=== PATIENT | male | born 1970 | race Caucasian/White ===

== ENCOUNTER 2020-11-01 15:12 | Outpatient (REF) | payer BC, SELFPAY ==
[2020-11-01 15:46] LABS: MANUAL DIFF FLAG NO
[2020-11-01 15:51] LABS: Basophils Absolute Auto 0.1 X10*3/uL (0.0-0.2); Basophils Percent Auto 0.9 % (0-2); Eosinophils Absolute Auto 0.6 X10*3/uL (0.0-0.4); Eosinophils Percent Auto 6.1 % (0-4); Hematocrit 47.6 % (42-52); Hemoglobin 15.6 g/dl (14.0-18.0); Imm Gran Abs Auto 0.03 X10*3/uL (0.00-0.03); Imm Gran Pct Auto 0.3 % (0.0-0.4); Lymphocytes Absolute Auto 3.6 X10*3/uL (1.2-4.9); Mean Corpuscular HGB Conc 32.8 g/dl (31.0-36.0); Mean Corpuscular Hemoglobin 29.3 pg (27.0-33.0); Mean Corpuscular Volume 89.3 fL (80-98); Mean Platelet Volume 10.3 fL (9.4-12.4); Monocytes Absolute Auto 0.9 X10*3/uL (0.1-1.2); Monocytes Percent Auto 9.2 % (2-11); Neutrophils Absolute Auto 4.1 X10*3/uL (2.0-8.3); Neutrophils Percent Auto 44.5 % (45-73); Platelet Count 312 X10*3/uL (160-400); Red Blood Count 5.33 X10*6/uL (4.60-5.80); Red Cell Distribution Width 14.6 % (11.0-16.0); White Blood Count 9.3 X10*3/uL (4.8-10.8)
[2020-11-01 16:17] LABS: Alanine Aminotransferase 22 U/L (0-40); Albumin Level 4.7 g/dL (3.5-5.0); Alkaline Phosphatase 72 U/L (39-117); Anion Gap 16 (12-20); Aspartate Amino Transferase 21 U/L (5-37); Bilirubin Total 0.7 mg/dL (0.0-1.0); Blood Urea Nitrogen 14 mg/dL (9-16); Calcium 10.3 mg/dL (8.4-10.2); Carbon Dioxide 28 mmol/L (22-29); Chloride 103 mmol/L (96-108); Cholesterol 229 mg/dL; Estimated Glomerular Filt Rate > 60; Glucose Random 91 mg/dL (60-115); HDL Cholesterol 48 mg/dL; LDL Cholesterol Calculated 156 mg/dl; Potassium 4.7 mmol/L (3.3-5.1); Sodium 142 mmol/L (135-145); Total Protein 7.2 g/dL (6.5-8.0); Triglycerides 125 mg/dL
[2020-11-01 16:37] LABS: Prostate Specific Antigen 0.35 ng/mL (<0.05-4.0)
== END 2020-11-01 15:13 | disposition home or self-care (01) ==
LOC: HO.LAB 15:12
PROVIDERS: PCP Internal Medicine Medical Oncology; Visit Provider Internal Medicine Medical Oncology
DX: Z00.00 Encounter for general adult medical examination without abnormal findings (principal); E66.9 Obesity, unspecified
CPT/HCPCS: 36415; 80053; 80061; 84153; 85025

== ENCOUNTER 2021-01-10 11:05 | Day surgery (SDC) | payer BC, SELFPAY ==
[2021-01-04 09:34] VITALS: BMI 32.1
--- NOTE | 2021-01-07 11:06 | P.CONAN_ITS ---
Documented by User: Leena Pedersen 01/07/21 11:06 HPI - Anesthesia Eval Consult details Narrative: 50yo M for Upper Endoscopy and Colonoscopy [facility] Past Medical History Medical History Back pain GERD (gastroesophageal reflux disease) Surgical History Surgical History History of back surgery Social History Social History Patient Tobacco Use Status: Current everyday Tobacco user Tobacco use type: Cigarette Cigarettes Per Day: 25 Smoked in Last 30 Days: Yes Advance Directives: No Advance Directives Information Provided: Yes Meds Allergies Allergy/AdvReac Type Severity Reaction Status Date / Time No Known Allergies Allergy Verified 01/04/21 09:30 Home Medications Medication Instructions Recorded Confirmed Last Taken Type ibuprofen 01/04/21 01/04/21 Unknown History omeprazole 1 cap PO DAILY 01/04/21 01/04/21 Unknown History Exam Exam Date and Time: January 07, 2021 110 Height,Weight and Vital Signs: Height 5 ft 9 in Weight 98.883 kg Pertinent Lab Results Pertinent Lab Results: Laboratory Tests 11/01/20 11/01/20 15:28 15:28 WBC 9.3 Hgb 15.6 Hct 47.6 Plt Count 312 Sodium 142 Potassium 4.7 Chloride 103 Carbon Dioxide 28 BUN 14 Creatinine 0.99 Assessment and Plan Assessment Anesthesia Assessment: Chart Reviewed Documented by User: Boaz Oliveira 01/10/21 12:49 [facility] Past Medical History Medical History Back pain GERD (gastroesophageal reflux disease) Surgical History Surgical History History of back surgery Social History Social History Patient Tobacco Use Status: Current everyday Tobacco user Tobacco use type: Cigarette Cigarettes Per Day: 25 Smoked in Last 30 Days: Yes Advance Directives: No Advance Directives Information Provided: Yes Meds Allergies Allergy/AdvReac Type Severity Reaction Status Date / Time No Known Allergies Allergy Verified 01/04/21 09:30 Home Medications Medication Instructions Recorded Confirmed Last Taken Type ibuprofen 01/04/21 01/04/21 Unknown History omeprazole 1 cap PO DAILY 01/04/21 01/04/21 Unknown History Exam Airway Mallampati Class: II TM Dist: >3cm Neck ROM: Full Loose/Missing/Broken Teeth: No Heart: [id number] Lungs: cta b/l Assessment and Plan Assessment Anesthesia Assessment: Anesthesia Plan Discussed, PAT Visit and Chart Reviewed Final Anesthetic Review NPO: Yes ASA Class: II Final Preanesthetic Review: No Changes in Pt Med Stat, Meds/Allgs Chart Reviewed, Consent Obtained/Reviewed and Anes Risks/Benef Reviewed Patient Risk: Low Procedure Risk: Low Assessment/Block/Sedation in SS: Assess/Block/Sedation-SS Anesthetic Plan Anesthetic Plan: MAC: and Agree w/ Assess. and Plan Disposition: Standard PACU
[2021-01-10 11:32] VITALS: BP 129/89; PULSE 82; RESP 16; TEMP 36.8; O2SAT 96
[2021-01-10] MEDS: Lactated Ringers 1,000 ML 100 ML IVCONT (11:43)
--- NOTE | 2021-01-10 14:38 | PM.OP ---
Brief Operative Note Date of Service: 01/10/21 Pre-op diagnosis: GERD, Screening Post-op diagnosis: other (Hiatal hernia, Colon polyps) Procedure: EGD with biopsy, Colonoscopy to the cecum and TI with bx/removal of polyps Surgeon: Derrick Dye Anesthesia: MAC Was an Application Developer used for this Procedure?: No Estimated blood loss (mL): 4.0 Pathology: other (A. EG Junction at 38cm B. Cecal polyp C. Polyp at 20cm) Condition: stable Disposition: PACU
[2021-01-10 14:40] VITALS: BP 101/68; PULSE 67; RESP 14; TEMP 36.2; O2SAT 96
[2021-01-10 14:55] VITALS: BP 106/73; PULSE 69; RESP 16; TEMP 36.2; O2SAT 99
--- NOTE | 2021-01-10 15:09 | OP_ITS ---
SURGEON: Derrick Dye MD INDICATIONS: The patient presents for evaluation of gastroesophageal reflux, colorectal cancer screening. Full consent has been obtained from him for this, including risks of bleeding and perforation. PREOPERATIVE DIAGNOSIS: POSTOPERATIVE DIAGNOSIS: PROCEDURE PERFORMED: Esophagogastroduodenoscopy with biopsies, and colonoscopy to the cecum and terminal ileum with biopsy and removal of polyps. ESTIMATED BLOOD LOSS: COMPLICATIONS: ANESTHESIA: Monitored anesthesia care. ASSISTANTS: SPECIMENS: PREOPERATIVE DIAGNOSES: Gastroesophageal reflux and colorectal cancer screening. POSTOPERATIVE DIAGNOSES: Gastroesophageal reflux and colorectal cancer screening, hiatal hernia, colon polyps, diverticulosis, and internal hemorrhoids. DESCRIPTION OF PROCEDURE: The patient was placed in the left lateral decubitus position. The Olympus video gastroscope was passed in the posterior oropharynx and upper esophagus under direct vision. The scope was passed slowly into the distal esophagus. The gastroesophageal junction appeared at 38 cm. There was some very slight irregularity consistent with reflux, but no evidence of esophagitis nor definitive evidence of Blackwell's mucosa. There was a small to moderate-sized hiatal hernia. The scope was advanced to the pylorus and duodenum was cannulated to the descending portion. The duodenum including the bulb appeared normal without mass or ulceration. Scope was withdrawn back in the stomach. The gastric antrum and body appeared normal with good peristalsis. Scope was retroflexed visualizing the proximal stomach carefully, which appeared normal, without any sign of mass or ulceration. The scope was straightened out and withdrawn back into the esophagus. Biopsies were obtained at the EG junction at 38 cm. Proximal to that, the esophageal mucosa appeared normal. The scope was withdrawn from the patient. He was turned around for colonoscopy. The digital rectal exam revealed no abnormalities. The Olympus video pediatric colonoscope was entered into the rectum and advanced easily to the cecum. Once in the cecum, I did identify cecal pouch with appendiceal orifice and a normal-appearing ileocecal valve. The terminal ileum was cannulated and appeared normal. Scope was withdrawn back in the colon. In the cecum, was a flat approximately 5 mm polyp, which was biopsied and completely removed with cold biopsy forceps. The remainder of the cecum appeared normal. The scope was then slowly withdrawn assessing all mucosal surfaces carefully. Preparation was excellent. At 20 cm, was a flat approximately 3 or 4 mm polyp, which was biopsied and completely removed with cold biopsy forceps. I did not visualize any other polyps, colitis, nor angiodysplasia. There was a mild amount of sigmoid diverticulosis. In the rectum, scope was retroflexed visualizing internal hemorrhoids, but no other pathology. The rectal mucosa appeared normal. The scope was straightened out and withdrawn from the patient. He tolerated both procedures well and was returned to the recovery area in stable condition. IMPRESSION: 1. Hiatal hernia, gastroesophageal reflux. 2. Colon polyps, status post biopsy and removal. 3. Diverticulosis. 4. Internal hemorrhoids. PLAN: The results of the biopsies will be checked. If the colon polyps are tubular adenoma, I would recommend a followup colonoscopy in 5 years. If they are hyperplastic, I would recommend a followup colonoscopy in 10 years. He was advised not to use any aspirin and NSAIDs for 1 week. He will continue his daily omeprazole for relief of reflux, which is working well for him. If things are stable, he would otherwise see me on a p.r.n. basis. MD CHINA Hopkins/HÉCTOR / [phone]
== END 2021-01-10 15:30 | disposition home or self-care (01) ==
PROVIDERS: PCP Internal Medicine Medical Oncology; Visit Provider Internal Medicine
PROC: (CPT 45380; principal; 2021-01-10 12:20)
DX: Z12.11 Encounter for screening for malignant neoplasm of colon (principal); D12.0 Benign neoplasm of cecum; K63.5 Polyp of colon; K57.30 Diverticulosis of large intestine without perforation or abscess without bleeding; K64.8 Other hemorrhoids; K21.9 Gastro-esophageal reflux disease without esophagitis; K44.9 Diaphragmatic hernia without obstruction or gangrene; Z79.899 Other long term (current) drug therapy; F17.210 Nicotine dependence, cigarettes, uncomplicated
CPT/HCPCS: 45380; 43239; 88305

== ENCOUNTER 2023-12-03 15:00 | Outpatient (REF) | payer BC, SELFPAY ==
[2023-12-03 15:43] LABS: Basophils Absolute Auto 0.1 X10*3/uL (0.0-0.2); Basophils Percent Auto 1.1 % (0-2); Eosinophils Absolute Auto 0.4 X10*3/uL (0.0-0.4); Eosinophils Percent Auto 4.1 % (0-4); Hematocrit 45.6 % (42.0-52.0); Hemoglobin 15.1 g/dl (14.0-18.0); Imm Gran Abs Auto 0.04 X10*3/uL (0.00-0.03); Imm Gran Pct Auto 0.4 % (0.0-0.4); Lymphocytes Absolute Auto 2.9 X10*3/uL (1.2-4.9); Lymphocytes Percent Auto 31.6 % (20-40); MANUAL DIFF FLAG NO; Mean Corpuscular HGB Conc 33.1 g/dl (31.0-36.0); Mean Corpuscular Hemoglobin 29.4 pg (27.0-33.0); Mean Corpuscular Volume 88.7 fL (80.0-98.0); Mean Platelet Volume 10.3 fL (9.4-12.4); Monocytes Absolute Auto 0.7 X10*3/uL (0.1-1.2); Neutrophils Absolute Auto 5.1 x10*3/uL (2.0-8.3); Neutrophils Percent Auto 54.8 % (45-73); Platelet Count 301 X10*3/uL (160-400); Red Blood Count 5.14 X10*6/uL (4.60-5.80); Red Cell Distribution Width 13.5 % (11.0-16.0); White Blood Count 9.3 X10*3/uL (4.8-10.8)
[2023-12-03 16:21] LABS: Alanine Aminotransferase 16 U/L (0-40); Albumin Level 4.5 g/dL (3.5-5.0); Alkaline Phosphatase 68 U/L (39-117); Anion Gap 11 (12-20); Aspartate Amino Transferase 17 U/L (5-37); Bilirubin Total 0.6 mg/dL (0.0-1.0); Blood Urea Nitrogen 20 mg/dL (9-16); Calcium 9.8 mg/dL (8.4-10.2); Carbon Dioxide 24 mmol/L (22-29); Chloride 109 mmol/L (96-108); Cholesterol 220 mg/dL (<200); Estimated Glomerular Filt Rate > 60; Glucose Random 92 mg/dL (60-115); HDL Cholesterol 42 mg/dL (>40); LDL Cholesterol Calculated 150 mg/dL (<100); Potassium 4.5 mmol/L (3.3-5.1); Sodium 139 mmol/L (135-145); Total Protein 7.5 g/dL (6.5-8.0); Triglycerides 143 mg/dL (<150)
== END 2023-12-03 15:01 | disposition home or self-care (01) ==
LOC: HO.LAB 15:00
PROVIDERS: PCP Internal Medicine Medical Oncology; Visit Provider Internal Medicine Medical Oncology
DX: Z00.00 Encounter for general adult medical examination without abnormal findings (principal)
CPT/HCPCS: 36415; 80053; 80061; 85025

== ENCOUNTER 2023-12-17 09:04 | Outpatient (REF) | payer BC, SELFPAY ==
--- NOTE | ~2023-12-17 | US_ITS ---
EXAMINATION: US ABDOMEN COMPLETE CLINICAL INFORMATION: Upper abdominal pain. COMPARISON: None available. TECHNIQUE: Real-time imaging of the abdominal viscera. FINDINGS: PANCREAS: Pancreas could not be evaluated as it was obscured by bowel gas. ABDOMINAL AORTA: The proximal, mid, and distal segments are normal in caliber. INFERIOR VENA CAVA: Visualized portions are normal. LIVER: The liver is normal in size. The liver contour is normal. There is diffuse increased liver parenchymal echogenicity, consistent with hepatic steatosis. There is a complex cyst present with septation in the right lobe of the liver measuring 1.8 cm. There is no intrahepatic biliary duct dilatation seen. GALLBLADDER: The gallbladder is physiologically distended without evidence of stones, sludge, polyps, wall thickening or pericholecystic fluid. COMMON BILE DUCT: Normal in caliber measuring 0.3 cm in diameter. LEFT KIDNEY: No hydronephrosis. No renal calculi or focal parenchymal lesions. The kidney measures 11.3 cm in maximum dimension. RIGHT KIDNEY: There is a mid renal lateral mass present measuring 1.7 x 1.5 x 1.4 cm which does not appear to be a simple cyst low level echoes throughout. A solid mass cannot be excluded. No hydronephrosis. No renal calculi . The kidney measures 9.9 cm in maximum dimension. SPLEEN: Normal. The spleen measures 11.7 cm in maximum dimension. FREE FLUID: None. US/US abdomen complete IMPRESSION: 1. Hepatic steatosis. 2. Complex hepatic cyst. 3. Right renal mass. MRI is recommended for further evaluation.
== END 2023-12-17 09:05 | disposition home or self-care (01) ==
LOC: HO.HMGCX 09:04
PROVIDERS: PCP Internal Medicine Medical Oncology; Visit Provider Internal Medicine Medical Oncology
DX: R10.10 Upper abdominal pain, unspecified (principal)
CPT/HCPCS: 76700

== ENCOUNTER 2024-01-02 11:45 | Outpatient (REF) | payer BC, SELFPAY ==
--- NOTE | ~2024-01-02 | MR_ITS ---
EXAMINATION: MR ABDOMEN WITHOUT AND WITH CONTRAST CLINICAL INFORMATION: 1.7 cm kidney mass. Left upper quadrant pain. COMPARISON: Abdomen ultrasound from 12/17/2023. TECHNIQUE: MR abdomen was performed without and with use of 10 mL intravenous Gadavist gadolinium contrast on a high-field magnet. Postcontrast images are performed in multiphase dynamic sequences. Imaging was performed in 3 planes. FINDINGS: LUNG BASES: Normal. No pulmonary consolidation or pleural effusion. LIVER: Liver has normal size and contour. The estimated fat fraction of the liver is 9% (i.e., mild steatosis). A lobulated cyst with thin septation in the right lobe measures up to 1.3 cm. No suspicious hepatic lesions. GALLBLADDER AND BILIARY TREE: Gallbladder is physiologically distended and has normal wall thickness. No evidence of cholelithiasis, pericholecystic fluid or dilated bile ducts. PANCREAS: No edema, pancreatic ductal dilatation or mass. SPLEEN: Normal. ADRENAL GLANDS: Normal. KIDNEYS: Kidneys are normal in size and enhance symmetrically. No hydronephrosis or perinephric edema. An exophytic mass at the lateral upper pole of the right kidney corresponds to the lesion that had a solid appearance on the ultrasound exam from 12/17/2023. The lesion is nearly isointense compared to adjacent renal cortex on noncontrast T1-weighted images with exception of a focus of intrinsic T1 signal shortening from hemorrhage or proteinaceous material along its posterior aspect. The mass is T2 hypointense (image 24, series 4). On the dynamic postcontrast images, it demonstrates slightly heterogeneous and mild enhancement, perceptible with use of a range of interest cursor to measure changes in the signal intensity of the lesion. Otherwise, kidneys are unremarkable. BOWEL AND PERITONEUM: Stomach is unremarkable. No dilated loops of bowel. There are diverticula of the colon without evidence of diverticulitis. No bowel wall thickening or mesenteric fat stranding. No abdominal free fluid. VASCULATURE: Abdominal aorta is normal in caliber and its branches are widely patent. Inferior vena cava and renal veins are normal. LYMPH NODES: No pathologic sized lymph nodes in the abdomen. SKELETAL: No suspicious osseous lesions. There are chronic disc degenerative changes of lumbar spine at L3-L4 and L5-S1. MR/MR abdomen wo/w con IMPRESSION: * 1.5 cm exophytic mass at the lateral upper pole of the right kidney has imaging features suggestive of a papillary type renal cell carcinoma. * Mild hepatic steatosis. * Diverticulosis of the colon without diverticulitis.
[2024-01-02] MEDS: gadobutroL 10 ML VIAL IVPUSH (13:25)
== END 2024-01-02 11:46 | disposition home or self-care (01) ==
LOC: HO.MRI 11:45
PROVIDERS: PCP Internal Medicine Medical Oncology; Visit Provider Internal Medicine Medical Oncology
DX: R10.9 Unspecified abdominal pain (principal)
CPT/HCPCS: 74183; A9585

== ENCOUNTER 2024-04-01 15:15 | Outpatient (REF) | payer BC, SELFPAY ==
--- NOTE | ~2024-04-01 | MR_ITS ---
EXAMINATION: MR ABDOMEN WITHOUT AND WITH CONTRAST CLINICAL INFORMATION: 1.7 cm Kidney mass. COMPARISON: MRI dated January 02, 2024 TECHNIQUE: MR abdomen was performed without and with use of 9.0 mL intravenous Gadavist gadolinium contrast without reported immediate complications. Postcontrast images are performed in multiphase dynamic sequences. Imaging was performed in 3 planes. FINDINGS: Submitted for interpretation on May 07, 2024. LIVER, GALLBLADDER, AND BILIARY TREE: Liver measures 18 cm. There is a 1.7 cm lobulated thin capsulated and septated peripheral enhancing lesion, posterior right hepatic lobe no intrahepatic biliary ductal dilatation. Portal vein and hepatic veins are patent. Intrahepatic portion of the IVC is patent. Gallbladder is contracted. No pericholecystic fluid collection or gallbladder wall thickening. Common bile duct measures 4 mm. PANCREAS: No focal pancreatic mass. No main pancreatic ductal dilatation. No peripancreatic fluid collections. SPLEEN: Measures 11 cm. No focal mass. ADRENAL GLANDS: No nodular lesions. KIDNEYS AND URETERS: Right kidney: There is a 2.3 cm exophytic intrinsic hyperintense T1 heterogeneous hyperintense T2 peripheral thin capsulated enhancing lesion, posterior lateral upper pole. No hydronephrosis. Left kidney: No enhancing mass. No hydronephrosis. No lymphadenopathy in the retroperitoneum or renal hilum at either side. GASTROINTESTINAL TRACT: Abundant stool. Scattered diverticula. No intestinal obstruction pattern. No ascites. ABDOMINAL WALL: No significant hernia is appreciated. LYMPH NODES: No lymphadenopathy. VASCULAR: No aneurysm or dissection, abdominal aorta. OSSEOUS STRUCTURES: Multilevel spondylosis more conspicuous at L3-4 and L5-S1 levels with focal hyperintense T2 fat-sat signal in the posterior spinous processes tip likely inflammatory. MR/MR abdomen wo/w con IMPRESSION: Probable post treatment changes with hemorrhagic component in the 2.3 cm exophytic lesion, upper pole right kidney. Continue follow-up. Nonspecific hepatic lesion posterior hemangioma versus hamartoma versus complex cystic lesion. Electronically signed by: Michael Devi MD 05/07/2024 10:55 AM EST
[2024-04-01] MEDS: gadobutroL 10 ML VIAL IVPUSH (16:07)
[2024-04-01 16:35] LABS: MANUAL DIFF FLAG NO
[2024-04-01 17:04] LABS: Basophils Absolute Auto 0.1 X10*3/uL (0.0-0.2); Basophils Percent Auto 0.7 % (0-2); Eosinophils Absolute Auto 0.3 X10*3/uL (0.0-0.4); Eosinophils Percent Auto 2.8 % (0-4); Hematocrit 45.6 % (42.0-52.0); Hemoglobin 15.3 g/dl (14.0-18.0); Imm Gran Abs Auto 0.03 X10*3/uL (0.00-0.03); Imm Gran Pct Auto 0.3 % (0.0-0.4); Lymphocytes Absolute Auto 3.2 X10*3/uL (1.2-4.9); Mean Corpuscular HGB Conc 33.6 g/dl (31.0-36.0); Mean Corpuscular Hemoglobin 29.9 pg (27.0-33.0); Mean Corpuscular Volume 89.2 fL (80.0-98.0); Mean Platelet Volume 10.6 fL (9.4-12.4); Monocytes Absolute Auto 0.9 X10*3/uL (0.1-1.2); Neutrophils Absolute Auto 5.8 x10*3/uL (2.0-8.3); Neutrophils Percent Auto 56.2 % (45-73); Platelet Count 289 X10*3/uL (160-400); Red Blood Count 5.11 X10*6/uL (4.60-5.80); Red Cell Distribution Width 13.3 % (11.0-16.0); White Blood Count 10.2 X10*3/uL (4.8-10.8)
[2024-04-01 17:27] LABS: Alanine Aminotransferase 17 U/L (0-40); Albumin Level 4.5 g/dL (3.5-5.0); Alkaline Phosphatase 69 U/L (39-117); Amylase 46 U/L (28-100); Anion Gap 13 (12-20); Aspartate Amino Transferase 18 U/L (5-37); Bilirubin Total 0.3 mg/dL (0.0-1.0); Blood Urea Nitrogen 17 mg/dL (9-16); Carbon Dioxide 26 mmol/L (22-29); Chloride 109 mmol/L (96-108); Estimated Glomerular Filt Rate > 60; Glucose Random 95 mg/dL (60-115); Lipase 18 U/L (8-78); Potassium 4.9 mmol/L (3.3-5.1); Sodium 143 mmol/L (135-145); Total Protein 7.4 g/dL (6.5-8.0)
== END 2024-04-01 15:16 | disposition home or self-care (01) ==
LOC: HO.MRI 15:15
PROVIDERS: PCP Internal Medicine Medical Oncology; Visit Provider Internal Medicine Medical Oncology
DX: N28.89 Other specified disorders of kidney and ureter (principal); R10.13 Epigastric pain; E66.9 Obesity, unspecified
CPT/HCPCS: 36415; 74183; 80053; 82150; 83690; 85025; A9585

== ENCOUNTER → 2024-04-01 15:35 | Outpatient (BNV) | payer BC, SELFPAY | PROVIDERS: PCP Internal Medicine Medical Oncology; Visit Provider Radiology Diagnostic Radiology | DX: N28.89 Other specified disorders of kidney and ureter (principal) | CPT/HCPCS: 74183 ==

== ENCOUNTER 2024-08-26 15:34 | Outpatient (REF) | payer BC, SELFPAY ==
[2024-08-26 15:45] LABS: MANUAL DIFF FLAG NO
[2024-08-26 17:10] LABS: Basophils Absolute Auto 0.1 X10*3/uL (0.0-0.2); Basophils Percent Auto 0.9 % (0-2); Eosinophils Absolute Auto 0.5 X10*3/uL (0.0-0.4); Eosinophils Percent Auto 4.2 % (0-4); Hematocrit 45.5 % (42.0-52.0); Hemoglobin 14.7 g/dl (14.0-18.0); Imm Gran Abs Auto 0.05 X10*3/uL (0.00-0.03); Imm Gran Pct Auto 0.5 % (0.0-0.4); Lymphocytes Absolute Auto 3.5 X10*3/uL (1.2-4.9); Lymphocytes Percent Auto 32.1 % (20-40); Mean Corpuscular HGB Conc 32.3 g/dl (31.0-36.0); Mean Corpuscular Hemoglobin 29.2 pg (27.0-33.0); Mean Corpuscular Volume 90.5 fL (80.0-98.0); Mean Platelet Volume 10.9 fL (9.4-12.4); Monocytes Percent Auto 8.7 % (2-11); Neutrophils Absolute Auto 5.9 x10*3/uL (2.0-8.3); Neutrophils Percent Auto 53.6 % (45-73); Platelet Count 314 X10*3/uL (160-400); Red Blood Count 5.03 X10*6/uL (4.60-5.80); Red Cell Distribution Width 12.9 % (11.0-16.0)
[2024-08-26 17:39] LABS: Alanine Aminotransferase 26 U/L (0-40); Albumin Level 4.2 g/dL (3.5-5.0); Anion Gap 11 (12-20); Aspartate Amino Transferase 22 U/L (5-37); Bilirubin Total 0.3 mg/dL (0.0-1.0); Blood Urea Nitrogen 15 mg/dL (9-16); Calcium 9.5 mg/dL (8.4-10.2); Carbon Dioxide 27 mmol/L (22-29); Chloride 109 mmol/L (96-108); Estimated Glomerular Filt Rate > 60; Glucose Random 90 mg/dL (60-115); Potassium 4.4 mmol/L (3.3-5.1); Sodium 143 mmol/L (135-145); Total Protein 7.3 g/dL (6.5-8.0)
[2024-08-26 17:45] LABS: Alkaline Phosphatase 67 U/L (39-117)
[2024-08-26 18:50] LABS: Erythrocyte Sedimentation Rate 10 MM/HR (0-15)
--- OUTSIDE RECORDS SUMMARY | 2024-08-26 19:38 | XMS_ITS ---
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 Name Role Phone Derrick Castro Primary Care Provider [phone] Allergies Allergen (clinical drug ingredient) Drug/Non Drug Allergy documented on EMR Reaction Allergy Type Onset Date Status Seasonale Unknown Drug Allergy Active REASON FOR VISIT Follow up Medications Medication SIG (Take, Route, Frequency, Duration) Notes Start Date End Date Status Sildenafil Citrate 100 MG TAKE 1 TABLET BY MOUTH EVERY DAY NEEDED Active LORazepam 1 MG 1 tablet at bedtime as needed Orally Once a day for anxiety 06/02/2024 Active Omeprazole 20 MG TAKE 1 CAPSULE BY MO UT EVERY DAY Active Social History Tobacco Use: Social History Observation Description Date Details (start date - stop date) Current Smoker NA - NA Sex Assigned At : Social History Observation Description Sex Assigned At Male Tobacco Use/Smoking Question Answer Notes Patient is a current smoker Encounters Encounter Location Date Provider Diagnosis Derrick Castro III, MD [address] [place] [address] [place] [address] 08/05/2024 Derrick Castro Plan Of Treatment Medication Medication Name Sig Start Date Stop Date Notes Sildenafil Citrate 100 MG TAKE 1 TABLET BY MOUTH EVERY DAY NEEDED LORazepam 1 MG 1 tablet at bedtime as needed Orally Once a day for anxiety 06/02/2024 Omeprazole 20 MG TAKE 1 CAPSULE BY MO UTH EVERY DAY Next Appt Details Provider Name:Derrick Castro, 12/03/2024 02:00:00 PM, [address] [place] [address] [place], [address], Progress Notes * Florin LYLEDOB:1970 ([age] yo M)Acc No.[id number]:08/05/2024 Progress Notes Patient:?Florin LYLE Provider:?Derrick Castro MD :1970???Age:54 Y???Sex:Male Chris e:08/05/2024 Address:[address] [place], [place] [id number] Subjective: * Chief Complaints: * ???1. Follow up. * HPI: ???COVID-19 Screening:?Questions?Have you had any new onset fever, chills, cough, congestion, sore throat, shortness of breath, muscle aches??No * ROS:?General/Constitutional:?pain?only normal aches and pains.?Chills?denies.?Fatigue?admits.?Fever?denies.?ENT:?Decreased hearing?denies.?Respiratory:?Cough?denies.?Cardiovascular:?Chest pain with exertion?denies.?Dyspnea on exertion?denies.?Shortness of breath?denies.?Gastrointestinal:?Constipation?denies.?Decreased appetite?denies.?Diarrhea?denies.?Heartburn?denies.?Nausea?denies.?Rectal bleeding?denies.?Vomiting?denies.?Hematology:?bruising?denies.?petechiae?denies.?Swollen glands?none have been noted.?Genitourinary:?Frequent urination?denies.?Musculoskeletal:?Muscle aches?denies.?Painful joints?denies.?Sciatica?denies.?Weakness?denies.?Skin:?Itching?denies.?Rash?denies.?Skin lesion(s)?denies.?Neurologic:?Difficulty speaking?denies.?Dizziness?denies.?Headache?denies.?Low back pain?denies.?Psychiatric:?Depressed mood?denies.? 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 * Surgical History:?Back Surge ry, 17 yrs ago, Operative Note: L2-L3 decompression, reoperative L5-S1 decompression, reoperative left L3-L4 microdiskectomy, 2016-07-11, L-3 and L-4 04/2020, Colonoscopy, [facility], Dr. Derrick Dye 2020, No history , Back surgery . * Hospitalization/Major Diagno stic Procedure:?No history . * Family History:?Father: dece ased 56 yrs, Cancer Larynx, diagnosed with Cancer.?Mother: alive 72 yrs, breast cancer.?Children: alive.?Siblings: alive.?2 brother(s) , 1 sister(s) - healthy. 2 daughter(s) - healthy. .? He has 2 brothers, Sarah and Marcos and one sister Elizabeth. Sarah is in a chcf because of a traumatic brain injury. He has 2 children Ashley and Stacey who are healthy and well. He has no family history of cancer other than paternal laryngeal cancer. * Social History:?Tobacco Use:?Tobacco Use/Smoking?Patient is a?current smoker ???He is with 2 children. He is currently working. Job application: The patient is considering a job offer in [place], [place]. Smoking - Patient is a smoker and is trying to quit. * Medications:?Taking Sildenaf il Citrate 100 MG Tablet TAKE 1 TABLET BY MOUTH EVERY DAY NEEDED , Taking Omeprazole 20 MG Capsule Delayed Release TAKE 1 CAPSULE BY MOUTH EVERY DAY , Taking LORazepam 1 MG Tablet 1 tablet at bedtime as needed Orally Once a day for anxiety , Medication List reviewed and reconciled with the patient * Allergies:?Seasonale. Objective: * Vitals:? * Examination: ???General Examination: ?GENERAL APPEARANCE:?pleasant, well nourished, well developed, in no acute distress, calm and relaxed.?HEAD:?atraumatic, normocephalic.?EYES:?eomi, perrla, anicteric, conjugate.?EARS:?normal.?NOSE:?septum intact.?ORAL CAVITY:?normal, unremarkable.?NECK/THYROID:?no jugular venous distention, no carotid bruit, thyroid normal.?LYMPH NODES:?no enlarged lymph nodes,spleen normal.?SKIN:?no suspicious lesions, anicteric.?HEART:?no clicks, gallops, murmurs, or rubs, regular rhythm, S1, S2 normal, no s3, or vascular bruits.?LUNGS:?clear to auscultation .?BREASTS:??no masses palpable bilaterally.?ABDOMEN:?bowel sounds normal, no ascites, no organomegaly, no mass.?RECTAL EXAM:?not examined.?MUSCULOSKELETAL:?extremities unremarkable, no clubbing, cyanosis or edema.?PERIPHERAL PULSES:?normal.?NEUROLOGIC:?alert and oriented, cranial nerves 2-12 grossly intact, deep tendon reflexes 2+ symmetrical, motor strength normal upper and lower extremities, sensory exam intact.?PSYCH:?alert, oriented.? Assessment: Plan: * Treatment: * Images: * The named appointment provid er may or may not be the originator of this progress note, and it is not deemed complete until electronically signed by the appointment provider. Sign off status: Pending * Provider:?Derrick Castro MD Date:?07/26 Generated for Radha hurst/Faxing/eTransmitting on:?08/26/2024 07:38 PM EST History and Physical Notes * HPI (History of Present Illness) Category Sub-Category Detail Notes COVID-19 Screening Questions Have you had any new onset fever, chills, cough, congestion, sore throat, shortness of breath, muscle aches?: No Examination Category Sub-Category Detail Notes General Examination GENERAL APPEARANCE: pleasant , well nourished, well developed, in no acute distress, calm and relaxed HEAD: atraumatic, normocep halic EYES: eomi, perrla, anicte janessa, conjugate EARS: normal NOSE: septum intact NECK/THYROID: no jugular venous di stention, no carotid bruit, thyroid normal HEART: no clicks, gallops, murmurs, or rubs, regular rhythm, S1, S2 normal, no s3, or vascular bruits LUNGS: clear to auscultatio n ABDOMEN: bowel sounds normal, no ascites, no organomegaly, no mass NEUROLOGIC: alert and oriented, cranial nerves 2-12 grossly intact, deep tendon reflexes 2+ symmetrical, motor strength normal upper and lower extremities, sensory exam intact SKIN: no suspicious lesion s, anicteric PERIPHERAL PULSES: normal BREASTS: no masses palpable b ilaterally MUSCULOSKELETAL: extremities unremark able, no clubbing, cyanosis or edema LYMPH NODES: no enlarged lymph no tigre,spleen normal RECTAL EXAM: not examined PSYCH: alert, oriented ORAL CAVITY: normal, unremarkable
--- OUTSIDE RECORDS SUMMARY | 2024-08-26 19:38 | XMS_ITS ---
Author Organization Derrick Castro III, MD Address [address] [place] [address] [place] [address] Care Team Providers Care Line Repairer Tower Name Role Phone Derrick Castro Primary Care Provider [phone] Allergies Allergen (clinical drug ingredient) Drug/Non Drug Allergy documented on EMR Reaction Allergy Type Onset Date Status Seasonale Unknown Drug Allergy Active REASON FOR VISIT pain right side ribs, cant sleep, recent nephrectomy sarcona, better than post op, did not go back to sleep, wants pill for sleep, got trazodone Medications Medication SIG (Take, Route, Frequency, Duration) Notes Start Date End Date Status Sildenafil Citrate 100 MG TAKE 1 TABLET BY MOUTH EVERY DAY NEEDED Active LORazepam 1 MG 1 tablet at bedtime as needed Orally Once a day for anxiety 06/02/2024 Active traZODone HCl 100 MG 1 tablet at bedtime Orally Once a day for 30 days 08/26/2024 Active Omeprazole 20 MG TAKE 1 CAPSULE BY [facility] EVERY DAY Active Social History Tobacco Use: Social History Observation Description Date Details (start date - stop date) Current Smoker NA - NA Sex Assigned At : Social History Observation Description Sex Assigned At Male Tobacco Use/Smoking Question Answer Notes Patient is a current smoker Vital Signs Temperature 98.8 degrees Fahrenheit 08/27/19 25 Blood pressure systolic 134 mm Hg 08/27/19 25 Blood pressure diastolic 82 mm Hg 025 Heart Rate 71 /min 08/26/2024 Height 69 in in 08/26/2024 Weight 211 lbs 08/26/2024 BMI 31.16 kg/m2 08/26/2024 Encounters Encounter Location Date Provider Diagnosis Derrick Castro III, MD [address] [place] [address] [place] [address] 08/26/2024 Derrick Castro Obesity E66.9 ; Abdominal pain R10.9 and Renal neoplasm D49.519 Assessments Encounter Date Diagnosis (ICD Code) Assessment Notes Treatment Notes Treatment Clinical Notes 08/26/2024 Obesity (ICD-10 - E66.9) 08/26/2024 Abdominal pain (ICD-10 - R10.9) 08/26/2024 Renal neoplasm (ICD-10 - D49.519) Plan Of Treatment Medication Medication Name Sig Start Date Stop Date Notes Sildenafil Citrate 100 MG TAKE 1 TABLET BY MOUTH EVERY DAY NEEDED LORazepam 1 MG 1 tablet at bedtime as needed Orally Once a day for anxiety 06/02/2024 traZODone HCl 100 MG 1 tablet at bedtime Orally Once a day for 30 days 08/26/2024 Omeprazole 20 MG TAKE 1 CAPSULE BY [facility] EVERY DAY Pending Test Test Name Order Date PROFILE, RANDOM (COMPREHENSIVE METABOLIC ) 08/26/2024 CBC w DIFF 08/26/2024 SED RATE (ESR) 08/26/2024 CT ABD WITH CONTRAST 08/26/2024 Next Appt Details Provider Name:Derrick Castro, 12/03/2024 02:00:00 PM, [address] [place] [address] [address], [place], [address], Progress Notes * Florin ASHLEYDOB:1970 ([age] yo M)Acc No.[id number]:08/26/2024 Progress Notes Patient:?DION Florin Provider:?Derrick Castro MD :1970???Age:54 Y???Sex:Male Chris e:08/26/2024 Address:[address] [place], [place] [id number] Subjective: * Chief Complaints: * ???1. Pain right side ribs. 2. Cant sleep. 3. Recent nephrectomy sarcona. 4. Better than post op. 5. Did not go back to sleep. 6. Wants pill for sleep, got trazodone. * HPI: ???COVID-19 Screening:?Questions?Have you had any new onset fever, chills, cough, congestion, sore throat, shortness of breath, muscle aches??No * ROS:?General/Constitutional:?pain?only normal aches and pains.?Chills?denies.?Fatigue?admits.?Fever?denies.?ENT:?Decreased hearing?denies.?Respiratory:?Cough?denies.?Cardiovascular:?Chest pain with exertion?denies.?Dyspnea on exertion?denies.?Shortness of breath?denies.?Gastrointestinal:?Constipation?denies.?Decreased appetite?denies.?Diarrhea?denies.?Heartburn?denies.?Nausea?denies.?Rectal bleeding?denies.?Vomiting?denies.?Hematology:?bruising?denies.?petechiae?denies.?Swollen glands?none have been noted.?Genitourinary:?Frequent urination?denies.?Musculoskeletal:?Muscle aches?denies.?Painful joints?denies.?Sciatica?denies.?Weakness?denies.?Skin:?Itching?denies.?Rash?denies.?Skin lesion(s)?denies.?Neurologic:?Difficulty speaking?denies.?Dizziness?denies.?Headache?denies.?Low back pain?denies.?Psychiatric:?Depressed mood?denies.? 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 * Surgical History:?Back Surge ry, 17 yrs ago, Operative Note: L2-L3 decompression, reoperative L5-S1 decompression, reoperative left L3-L4 microdiskectomy, 2016-07-11, L-3 and L-4 04/2020, Colonoscopy, [facility], Dr. Derrick Dye 2020, No history , Back surgery . * Hospitalization/Major Diagno stic Procedure:?No history . * Family History:?Father: dece ased 56 yrs, Cancer Larynx, diagnosed with Cancer.?Mother: alive 72 yrs, breast cancer.?Children: alive.?Siblings: alive.?2 brother(s) , 1 sister(s) - healthy. 2 daughter(s) - healthy. .? He has 2 brothers, Sarah and Marcos and one sister Elizabeth. Sarah is in a long term because of a traumatic brain injury. He has 2 children Ashley and Stacey who are healthy and well. He has no family history of cancer other than paternal laryngeal cancer. * Social History:?Tobacco Use:?Tobacco Use/Smoking?Patient is a?current smoker ???He is with 2 children. He is currently working. Job application: The patient is considering a job offer in [place], [place]. Smoking - Patient is a smoker [...] with the patient * Allergies:?Seasonale. Objective: * Vitals:?Ht: 69 in, Wt: 211, BMI:31.16, BP: 134/82, HR: 71, Temp: 98.8, Ht-cm: 175.26, Wt-k.71. * Examination: ???General Examination: ?GENERAL APPEARANCE:?pleasant, well [...] lower extremities, sensory exam intact.?PSYCH:?alert, oriented.? Assessment: * Assessment: 1.?Obesity - E66.9???2.?Abdo yesika pain - R10.9???3.?Renal neoplasm - D49.519??? Plan: * Treatment: 2.?Abdominal pain?LAB: PROFILE, RANDOM (COMPREHENSIVE METABOLIC) ?LAB: CBC w DIFF ?LAB: SED RATE (ESR) ?Imaging: CT ABD WITH CONTRAST 3.?Renal neoplasm?Imaging: CT ABD WITH CONTRAST 4.?Others? Continue Sildenafil Citrate Tablet, 100 MG, TAKE 1 TABLET BY MOUTH EVERY DAY NEEDED;?Continue Omeprazole Capsule Delayed Release, 20 MG, TAKE 1 CAPSULE BY MOUTH EVERY DAY;?Continue LORazepam Tablet, 1 MG, 1 tablet at bedtime as needed, Orally, Once a day for anxiety;?Start traZODone HCl Tablet, 100 MG, 1 tablet at bedtime, Orally, Once a day, 30 days, 30, Refills 5.?? * Preventive Medicine:? ??Counseling:?Care goal follow-up plan:?Counseling for abnormal BMI given?Yes ?Above Normal BMI Follow-up?Dietary management education, guidance, and counseling, Dietary needs education, Exercise promotion: strength training, Exercise promotion: stretching, Feeding regime, Giving encouragement to exercise, Lifestyle education regarding diet, Nutrition / feeding management, Nutrition therapy, Prescribed activity/exercise education, Prescribed diet education, Prescribed dietary intake, Special diet education, Weight monitoring , Intervention, Order not done: Medical or Other reason not done * Images: * The named appointment provid er may or may not be the originator of this progress note, and it is not deemed complete until electronically signed by the appointment provider. Sign off status: Pending * Provider:?Derrick Castro MD Date:?09/2024 Generated for Radha hurst/Zina/eTransmitting on:?08/26/2024 07:37 PM EST History and Physical Notes * [...]
--- OUTSIDE RECORDS SUMMARY | 2024-08-26 19:38 | XMS_ITS ---
Author Organization Derrick Castro III, MD Address [address] [place] [place] [address] Care Team Providers Care Air Hammer Operator Name Role Phone Derrick Castro Primary Care Provider Allergies Allergen (clinical drug ingredient) Drug/Non Drug Allergy documented on EMR Reaction Allergy Type Onset Date Status Seasonale Unknown Drug Allergy Active REASON FOR VISIT Renal tumor, Tobacco dependence, Obesity, Spinal stenosis, GERD Medications Medication SIG (Take, Route, Frequency, Duration) Notes Start Date End Date Status LORazepam 1 MG 1 tablet at bedtime as needed Orally Once a day for anxiety 06/02/2024 Active Omeprazole 20 MG TAKE 1 CAPSULE BY [facility] EVERY DAY Active Sildenafil Citrate 100 MG TAKE 1 TABLET BY MOUTH EVERY DAY NEEDED Active Social History Tobacco Use: Social History Observation Description Date Details (start date - stop date) Current Smoker NA - NA Sex Assigned At : Social History Observation Description Sex Assigned At Male Tobacco Use/Smoking Question Answer Notes Patient is a current smoker Problems Problem Type SNOMED Code ICD Code Onset Dates Problem Status W/U Status Risk Notes Problem 968813898 Renal neoplasm (D49.519) Active confirmed He has been to urology and preet-nephrectomy is being planned in August of this year. I have examined him carefully today. I have reviewed the available. Blood work. There is no contraindication for surgery at this time. The risk is small and the benefit is great. He is medically cleared for surgery with general anesthesia. Vital Signs Temperature 98.5 degrees Fahrenheit 07/15/19 25 Blood pressure systolic 136 mm Hg 07/15/19 25 Blood pressure diastolic 73 mm Hg 025 Heart Rate 65 /min 07/15/2024 Height 69 in in 07/15/2024 Weight 218 lbs 07/15/2024 BMI 32.19 kg/m2 07/15/2024 Encounters Encounter Location Date Provider Diagnosis Derrick Castro III, MD [address] [place] [address] [place] [address] 07/15/2024 Derrick Castro Renal neoplasm D49.5 19 ; Low back pain M54.5 ; Tobacco dependence F17.200 ; Non-cardiac chest pain R07.89 ; Obesity E66.9 ; Gastroesophageal reflux disease without esophagitis K21.9 and Hepatic cyst K76.89 Assessments Encounter Date Diagnosis (ICD Code) Assessment Notes T reatment Notes Treatment Clinical Notes 07/15/2024 Renal neoplasm (ICD-10 - D49.519) He has been to urology and preet-nephrectomy is being planned in August of this year. I have examined him carefully today. I have reviewed the available. Blood work. There is no contraindication for surgery at this time. The risk is small and the benefit is great. He is medically cleared for surgery with general anesthesia. 07/15/2024 Low back pain (ICD-1 0 - M54.5) He continues to have mild back pain with most activities. It has been improved since his procedure. No change in his therapy was necessary today. 07/15/2024 Tobacco dependence (ICD-10 - F17.200) I strongly recommend smoking cessation. I discussed with him several strategies for accomplishing this. I have referred him to the smoking cessation classes at [facility]. I have made him aware of the health consequences of cigarette smoking. 07/15/2024 Non-cardiac chest pain (ICD-10 - R07.89) This issue has resolved. He denies any radiation experiences of chest pain. 07/15/2024 Obesity (ICD-10 - E66.9) He has lost 5 pounds over the last year. We discussed diet and nutrition. We made a plan to lose weight at a rate of one half of a pound per week. Diet restricted in fat calories and sodium combined with regular physical activity. 07/15/2024 Gastroesophageal reflux disease without esophagitis (ICD-10 - K21.9) His chronic esophageal symptoms are controlled with medication. It was noted that he had guaiac positive stool today. This will be pursued. 07/15/2024 Hepatic cyst (ICD-10 - K76.89) A complex cyst is present in the liver and the MRI will characterize it further. Plan Of Treatment Medication Medication Name Sig Start Date Stop Date Notes LORazepam 1 MG 1 tablet at bedtime as needed Orally Once a day for anxiety 06/02/2024 Omeprazole 20 MG TAKE 1 CAPSULE BY [facility] EVERY DAY Sildenafil Citrate 100 MG TAKE 1 TABLET BY MOUTH EVERY DAY NEEDED Next Appt Details Follow Up: 3 Weeks, Reason: OV Provider Name:Derrick Castro, 12/03/2024 02:00:00 PM, [address] [place] [address] [address], [place], [address], Progress Notes * Florin LYLEDOB:1970 ([age] yo M)Acc No.[id number]:07/15/2024 Progress Notes Patient:?Florin LYLE Provider:?Derrick Castro MD :1970???Age:54 Y???Sex:Male Chris e:07/15/2024 Address:[address] [place], [place] [id number] Subjective: * Chief Complaints: * ???Renal tumorTobacco depend enceObesitySpinal stenosisGERD * HPI: ???COVID-19 Screening:?He returns to review the results of his urologic consultation.? He saw [facility]. [facility] urology.? He has a 2.3 cm exophytic right renal neoplasm which appears to be malignant. A partial right nephrectomy is being planned in the near future.? I saw this patient today and took a careful history and examined him thoroughly.? I found no contraindication to surgery.? He is medically cleared for the procedure without general anesthesia.? The risk is strongly outweighed by the benefits.? He has no significant history of cardiac or pulmonary disease.? His renal function is adequate. He continues to have chronic low back pain.? We have discussed his various options for treatment.? He is going to see pain management.? He will see physiatry. ?Questions?Have you had any new onset fever, chills, cough, congestion, sore throat, shortness of breath, muscle aches??No * ROS:?General/Constitutional:?pain?Lumbar spine.?Chills?denies.?Fatigue?admits.?Fever?denies.?ENT:?Decreased hearing?denies.?Respiratory:?Cough?denies.?Cardiovascular:?Chest pain with exertion?denies.?Dyspnea on exertion?denies.?Shortness of breath?denies.?Gastrointestinal:?Constipation?occasional.?Decreased appetite?denies.?Diarrhea?denies.?Heartburn?denies.?Nausea?denies.?Rectal bleeding?denies.?Vomiting?denies.?Hematology:?bruising?denies.?petechiae?denies.?Swollen glands?none have been noted.?Genitourinary:?Frequent urination?once a night.?Musculoskeletal:?Muscle aches?denies.?Painful joints?denies.?Sciatica?denies.?Weakness?denies.?Skin:?Itching?denies.?Rash?denies.?Skin lesion(s)?denies.?Neurologic:?Difficulty speaking?denies.?Dizziness?denies.?Headache?denies.?Low back pain?denies.?Psychiatric:?Depressed mood?denies.? * Medical History:? * Surgical History:?Back Surge ry, 17 yrs agoOperative Note: L2-L3 decompression, reoperative L5-S1 decompression, reoperative left L3-L4 microdiskectomy, [id number]-3 and L-4 04/2020Colonoscopy, [facility], Dr. Derrick Dye 2020No history Back surgery * Hospitalization/Major Diagno stic Procedure:?No history * Family History:?Father: dece ased 56 yrs, Cancer Larynx, diagnosed with Cancer.?Mother: alive 72 yrs, breast cancer.?Children: alive.?Siblings: alive.?2 brother(s) , 1 sister(s) - healthy. 2 daughter(s) - healthy. .? He has 2 brothers, Sarah and Marcos and one sister Elizabeth. Sarah is in a custodial because of a traumatic brain injury. He has 2 children Ashley and Stacey who are healthy and well. He has no family history of cancer other than paternal laryngeal cancer. * Social History:?Tobacco Use:?Tobacco Use/Smoking?Patient is a?current smoker ???He is with 2 children. He is currently working. Job application: The patient is considering a job offer in [place], [place]. Smoking - Patient is a smoker and is trying to quit. * Medications:?TakingSildenafi l Citrate 100 MG Tablet TAKE 1 TABLET BY MOUTH EVERY DAY NEEDED Omeprazole 20 MG Capsule Delayed Release TAKE 1 CAPSULE BY MOUTH EVERY DAY LORazepam 1 MG Tablet 1 tablet at bedtime as needed Orally Once a day for anxiety Medication List reviewed and reconciled with the patientTaking Sildenafil Citrate 100 MG Tablet TAKE 1 TABLET BY MOUTH EVERY DAY NEEDED Taking Omeprazole 20 MG Capsule Delayed Release TAKE 1 CAPSULE BY MOUTH EVERY DAY Taking LORazepam 1 MG Tablet 1 tablet at bedtime as needed Orally Once a day for anxiety Medication List reviewed and reconciled with the patient * Allergies:?Seasonaleno[Aller gies Verified] Objective: * Vitals:?Ht: 69 in, Wt: 218, BMI:32.19, BP: 136/73, HR: 65, Temp: 98.5, Ht-cm: 175.26, Wt-k.88. * Examination: ???General Examination: ?GENERAL APPEARANCE:?pleasant, well nourished, well developed, in no acute distress, calm and relaxed, obese, man.?HEAD:?atraumatic, normocephalic.?EYES:?eomi, perrla, anicteric, conjugate.?EARS:?normal.?NOSE:?septum intact.?ORAL CAVITY:?normal, unremarkable.?NECK/THYROID:?no jugular venous distention, no carotid bruit, thyroid normal.?LYMPH NODES:?no enlarged lymph nodes,spleen normal.?SKIN:?no suspicious lesions, anicteric.?HEART:?no clicks, gallops, murmurs, or rubs, regular rhythm, S1, S2 normal, no s3, or vascular bruits.?LUNGS:?clear to auscultation .?BREASTS:??no masses palpable bilaterally.?ABDOMEN:?bowel sounds normal, no ascites, no organomegaly, no mass, centripital obesity.?RECTAL EXAM:?not examined.?MUSCULOSKELETAL:?extremities unremarkable, no clubbing, cyanosis or edema, Mild loss of range of motion lumbar spine.?PERIPHERAL PULSES:?normal.?NEUROLOGIC:?alert and oriented, cranial nerves 2-12 grossly intact, deep tendon reflexes 2+ symmetrical, motor strength normal upper and lower extremities, sensory exam intact.?PSYCH:?alert, oriented, thought process logical, goal directed, cognitive function intact, cooperative with exam, speech clear.? Assessment: * Assessment: 1.?Renal neoplasm - D49.519 (Primary)???Notes :He has been to urology and preet-nephrectomy is being planned in August of this year.? I have examined him carefully today.? I have reviewed the available.? Blood work.? There is no contraindication for surgery at this time.? The risk is small and the benefit is great.? He is medically cleared for surgery with general anesthesia.???2.?Low back pain - M54.5???Notes :He continues to have mild back pain with most activities.? It has been improved since his procedure.? No change in his therapy was necessary today.???3.?Tobacco dependence - F17.200???Notes :I strongly recommend smoking cessation. I discussed with him several strategies for accomplishing this. I have referred him to the smoking cessation classes at [facility]. I have made him aware of the health consequences of cigarette smoking.???4.?Non-cardiac chest pain - R07.89???Notes :This issue has resolved. He denies any radiation experiences of chest pain.???5.?Obesity - E66.9???Notes :He has lost 5 pounds over the last year. We discussed diet and nutrition. We made a plan to lose weight at a rate of one half of a pound per week. Diet restricted in fat calories and sodium combined with regular physical activity.???6.?Gastroesophageal reflux disease without esophagitis - K21.9???Notes :His chronic esophageal symptoms are controlled with medication. It was noted that he had guaiac positive stool today. This will be pursued.???7.?Hepatic cyst - K76.89???Notes :A complex cyst is present in the liver and the MRI will characterize it further.??? Plan: * Treatment: * Procedure Codes:? * Preventive Medicine:? ??Counseling:?Care goal follow-up plan:?Counseling [...] done: Medical or Other reason not done ?Smoking/Tobacco Use?Patient counseled on the dangers of tobacco use and urged to quit.?07/15/2024 ?Patient Lifestyle Goals?Patient wants to quit ?Treatment Goals?Set a quit date, Cut down by 1 cigarette a week ?Barriers?Stress, Social smoker ?Self-Management Plan?Make a plan to cut down number of cigarettes over time and set a date to work towards quitting * Follow Up:?3 Weeks (Reason: OV) * Images: * Sign off status: Completed true * Provider:?Derrick Castro MD Date:?06/26 Generated for Radha hurst/Zina/eTransmitting on:?08/26/2024 07:38 PM EST History and Physical Notes * HPI (History of Present Illness) Category Sub-Category Detail Notes COVID-19 Screening Questions Have you had any new onset fever, chills, cough, congestion, sore throat, shortness of breath, muscle aches?: No Examination Category Sub-Category Detail Notes General Examination GENERAL APPEARANCE: pleasant , well nourished, well developed, in no acute distress, calm and relaxed, obese, man HEAD: atraumatic, normocep halic EYES: eomi, perrla, anicte janessa, conjugate EARS: normal NOSE: septum intact NECK/THYROID: no jugular venous di stention, no carotid bruit, thyroid normal HEART: no clicks, gallops, murmurs, or rubs, regular rhythm, S1, S2 normal, no s3, or vascular bruits LUNGS: clear to auscultatio n ABDOMEN: bowel sounds normal, no ascites, no organomegaly, no mass, centripital obesity NEUROLOGIC: alert and oriented, cranial nerves 2-12 grossly intact, deep tendon reflexes 2+ symmetrical, motor strength normal upper and lower extremities, sensory exam intact SKIN: no suspicious lesion s, anicteric PERIPHERAL PULSES: normal BREASTS: no masses palpable b ilaterally MUSCULOSKELETAL: extremities unremark able, no clubbing, cyanosis or edema, Mild loss of range of motion lumbar spine LYMPH NODES: no enlarged lymph no tigre,spleen normal RECTAL EXAM: not examined PSYCH: alert, oriented, tho ught process logical, goal directed, cognitive function intact, cooperative with exam, speech clear ORAL CAVITY: normal, unremarkable
--- OUTSIDE RECORDS SUMMARY | 2024-08-26 19:38 | XMS_ITS | Patient Health Record ---
Author Organization [facility] Address [address] [place] [address] Care Team Providers Care Registered Nurse Name Role Phone Derrick Castro MD Primary Care Provider UnavailDerrick Blanc Unavailable [phone] ALLERGIES No Known Allergies REASON FOR REFERRAL No Information MEDICATIONS Medication SIG (Take, Route, Fr equency, Duration) Notes Start Date End Date Status ibuprofen Active Omeprazole 20 MG 1 capsule 30 minutes before morning meal Orally Once a day Active IMMUNIZATIONS Vaccine Route Administration Date Status Comme nts Influenza Unknown 02/24/2020 Administered SOCIAL HISTORY Tobacco Use: Social History Observation Description Date Details (start date - stop date) Current Smoker NA - NA Sex Assigned At : Social History Observation Description Sex Assigned At Unknown Tobacco Use/Smoking Question Answer Notes Patient is a current smoker How often do you smoke cigarettes? every day How many cigarettes a day do you smoke? Alcohol Screen Question Answer Notes Did you have a drink contain ing alcohol in the past year? Yes How often did you have a dri nk containing alcohol in the past year? 2 to 3 times a week (3 points) How many drinks did you have on a typical day when you were drinking in the past year? 3 or 4 drinks (1 point) How often did you have 6 or more drinks on one occasion in the past year? Never (0 point) Points 4 Interpretation Positive PROBLEMS Problem Type ICD Code Onset Dates Problem Status W/U Status Risk SNOMED Code Notes Problem Encounter for screening for malignant neoplasm of colon (Z12.11) Active confirmed 651018729 Problem Diverticulosis of large intestine without perforation or abscess without bleeding (K57.30) Active confirmed Diverticul ar disease of colon (772670276) Problem Gastroesophageal reflux disease without esophagitis (K21.9) Active confirmed Gastroesophagea l reflux disease without esophagitis (696002848) Problem Gastroesophageal reflux disease, unspecified whether esophagitis present (K21.9) Active confirmed 603916082 PLAN OF TREATMENT Future Test Test Name Order Date UPPER GI ENDOSCOPY 12/24/2020 COLONOSCOPY 12/24/2020 Insurance Providers Payer Name Payer Address Payer Phone Subscriber Number Group Number Insured Name Patient Relationship to Insured Coverage Start Date Coverage End Date [facility] [address] [place], [place] [id number] ASHLEY Self - patient is the insured MEDICAL (GENERAL) HISTORY Medical History History ICD Code Denies [place],DM,CVA,Lung disease,renal dise ase Back pain GERD Surgical History Surgery Date(Month/Year) Lower back surgery for disc disease x 3, most recently in 04/2020
--- OUTSIDE RECORDS SUMMARY | 2024-08-26 19:38 | XMS_ITS | Clinical Summary ---
Author Organization [facility] Address [address] [place] [address] Care Team Providers Care [employer]airer Name Role Phone Derrick Castro MD Primary Care Provider [phone] Social History Tobacco Use Types Packs/Day Years Used Date Smoking Tobacco: Never Assessed Sex and Gender Information Value Date Recorded Sex Assigned at Not on file Gender Identity Not on file Sexual Orientation Not on file Plan of Treatment Health Maintenance Due Date Last Done Comments Hepatitis B Vaccines (1 of 3 - 3-dose series) 1970 Hepatitis C Screening 1970 COVID-19 Vaccine (#1) 1970 Depression Screening 1982 Preventative Health Evaluation 1988 Colon Cancer Screening (Colonoscopy) 2015 DTap / Tdap / Td (2 - Td or Tdap) 12/02/2019 010 Shingrix-Zoster Vaccine (1 of 2) 2020 Influenza Vaccine (#1) 2024 04/11/2010 Pneumococcal Vaccine Aged Out No long er eligible based on patient's age to complete this topic RSV Ped < 20 months Aged Out No longe r eligible based on patient's age to complete this topic Care Teams [employer] Relationship Specialty Start Date End Date Derrick Castro MD [address] [phone] PCP - General Oncology 02/13/18
--- OUTSIDE RECORDS SUMMARY | 2024-08-26 19:38 | XMS_ITS | Patient Health Record ---
Author Organization Derrick Castro III, MD Address 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 [employer] Name Role Phone Derrick Castro Primary Care Provider Allergies Allergen (clinical drug ingredient) Drug/Non Drug Allergy documented on EMR Reaction Allergy Type Onset Date Status Seasonale Unknown Drug Allergy Active Results Component Value Reference Range Notes URINE DIP STICK Reviewed date:12/03/2023 02:32:19 PM Interpretation: Performing Lab: Notes/Report: SG 1.025 1.005 - 1.025 pH 5.0 5.0 - 9.0 TOSIN Negative Negative - NIT Negative Negative - PRO 15 Negative - Trace GLU Negative Negative - KET Negative Negative - UBG 0.2 0.1 - 1.8 JASON Negative 0.2 - 1.3 BLD Positive Negative - Lipid Panel Reviewed date:01/01/2024 01:56:59 PM Interpretation: Performing Lab:[facility], [address] [place] [phone] Notes/Report: Triglycerides 143 <150 mg/dL Desirable Triglyceride: less than 150 mg/dL Borderline High Triglyceride 150-199 mg/dL High Triglyceride: 200-499 mg/dL Very High Triglyceride: greater than or equal to 5OO mg/dL Cholesterol 220 <200 mg/dL Desirable Cholesterol: less than 200 mg/dL Borderline High Cholesterol: 200-239 mg/dL High Cholesterol: greater than 239 mg/dL LDL Cholesterol Calculated 150 <100 mg/dL Desirable LDL: less than 100 mg/dL Near Optimal/Above Optimal LDL: 110-129 mg/dL Borderline High LDL: 130-159 mg/dL High LDL: 160-189 mg/dL Very High LDL: greater than or equal to 190 mg/dL HDL Cholesterol 42 >40 mg/dL Desirable HDL: greater than 40 mg/dL Note: This HDL assay may give artificially low results in patients with liver disease. Amylase Reviewed date:05/24/2024 08:43:17 AM Interpretation: Performing Lab:[facility], [address] [place] [phone] Notes/Report: Amylase 46 28-100 U/L Lipase Reviewed date:05/24/2024 08:43:17 AM Interpretation: Performing Lab:[facility], [address] [place] [phone] Notes/Report: Lipase 18 8-78 U/L MR abdomen wo/w con Reviewed date:05/24/2024 08:43:17 AM Interpretation: Performing Lab: Notes/Report: [address] [place] [address] Magnetic Resonance Report Signed Patient: Florin Lyle MR#: [id number] : 1970 Acct:[id number] Age/Sex: 53 / M ADM Date: 04/01/24 Loc: HO.MRI Attending Dr: Derrick Castro MD Ordering Physician: Derrick Castro MD Date of Service: 04/01/24 Procedure(s): MR abdomen wo/w con Accession Number(s): [id number] cc: Derrick Castro MD EXAMINATION: MR ABDOMEN WITHOUT AND WITH CONTRAST CLINICAL INFORMATION: 1.7 cm Kidney mass. COMPARISON: MRI dated January 02, 2024 TECHNIQUE: MR abdomen was performed without and with use of 9.0 mL intravenous Gadavist gadolinium contrast without reported immediate complications. Postcontrast images are performed in multiphase dynamic sequences. Imaging was performed in 3 planes. FINDINGS: Submitted for interpretation on May 07, 2024. LIVER, GALLBLADDER, AND BILIARY TREE: Liver measures 18 cm. There is a 1.7 cm lobulated thin capsulated and septated peripheral enhancing lesion, posterior right hepatic lobe no intrahepatic biliary ductal dilatation. Portal vein and hepatic veins are patent. Intrahepatic portion of the IVC is patent. Gallbladder is contracted. No pericholecystic fluid collection or gallbladder wall thickening. Common bile duct measures 4 mm. PANCREAS: No focal pancreatic mass. No main pancreatic ductal dilatation. No peripancreatic fluid collections. SPLEEN: Measures 11 cm. No focal mass. ADRENAL GLANDS: No nodular lesions. KIDNEYS AND URETERS: Right kidney: There is a 2.3 cm exophytic intrinsic hyperintense T1 heterogeneous hyperintense T2 peripheral thin capsulated enhancing lesion, posterior lateral upper pole. No hydronephrosis. Left kidney: No enhancing mass. No hydronephrosis. No lymphadenopathy in the retroperitoneum or renal hilum at either side. GASTROINTESTINAL TRACT: Abundant stool. Scattered diverticula. No intestinal obstruction pattern. No ascites. ABDOMINAL WALL: No significant hernia is appreciated. LYMPH NODES: No lymphadenopathy. VASCULAR: No aneurysm or dissection, abdominal aorta. OSSEOUS STRUCTURES: Multilevel spondylosis more conspicuous at L3-4 and L5-S1 levels with focal hyperintense T2 fat-sat signal in the posterior spinous processes tip likely inflammatory. MR/MR abdomen wo/w con IMPRESSION: Probable post treatment changes with hemorrhagic component in the 2.3 cm exophytic lesion, upper pole right kidney. Continue follow-up. Nonspecific hepatic lesion posterior hemangioma versus hamartoma versus complex cystic lesion. Electronically signed by: Michael Devi MD 05/07/2024 10:55 AM EST Dictated By: Michael Romero MD Signed By: <Electronically signed by Michael Branch MD in OV> 05/07/24 1055 DD/ 1535 TD/TT: 04/01/24 1553 Trapeze Performer: [place] [id number] Magnetic Resonance Report Signed Patient: Florin Lyle MR#: [id number] : 1970 Acct:[id number] Age/Sex: 53 / M ADM Date: 04/01/24 Loc: HO.MRI Attending Dr: Derrick Castro MD Ordering Physician: Derrick Castro MD Date of Service: 04/01/24 Procedure(s): MR schmitz omen wo/w con Accession Number(s): [id number] cc: Derrick Castro MD EXAMINATION: MR ABDOMEN WITHOUT A ND WITH CONTRAST CLINICAL INFORMATION: 1.7 cm Kidney mass. COMPARISON: MRI dated January 02, 2024 TECHNIQUE: MR abdomen was perfo rmed without and with use of 9.0 mL intravenous Gadavist gadolinium contrast without reported immediate complications. Postcontrast images are performed in multiphase dynamic sequences. Imaging was performe d in 3 planes. FINDINGS: Submitted for interpretation on May 07, 2024. LIVER, GALLBLADDER, AND BILIARY TREE: Liver measures 18 cm. There is a 1.7 cm lobulated thi n capsulated and septated peripheral enhancing lesion, posterior ri ght hepatic lobe no intrahepatic biliary ductal dilatation. Portal v ein and hepatic veins are patent. Intrahepatic portion of the IVC i s patent. Gallbladder is contracted. No pericholecystic flui d collection or gallbladder wall thickening. Common bile duct measures 4 mm. PANCREAS: No focal pancreatic mass. No main pancreatic ductal dilatation. No peripancreatic fluid collections. SPLEEN: Measures 11 cm. No focal mass. ADRENAL GLANDS: No nodular lesions. KIDNEYS AND URETERS: Right kidney: There is a 2.3 cm exophytic intrinsic hyperintense T1 heterogeneous hyperintense T2 peripheral thin capsulated enhancing lesion, posterior lateral upper pole. No hydronephrosis. Left kidney: No enhancing mass. No hydronephrosis. No lymphadenopathy i n the retroperitoneum or renal hilum at either side. GASTROINTESTINAL TRA CT: Abundant stool. Scattered diverticula. No intestinal obstructi on pattern. No ascites. ABDOMINAL WALL: No significant hernia is appreciated. LYMPH NODES: No lymphadenopathy. VASCULAR: No aneurys m or dissection, abdominal aorta. OSSEOUS STRUCTURES: Multilevel spondylosis more conspicuous at L3-4 and L5-S1 levels with fo winsome hyperintense T2 fat-sat signal in the posterior spinous processes ti p likely inflammatory. M R/MR abdomen wo/w con IMPRESSION: Probable post treatm ent changes with hemorrhagic component in the 2.3 cm exophytic lesion, upper pole right kidney. Continue follow-up. Nonspecific hepatic lesion posterior hemangioma versus hamartoma versus complex cystic lesion. Electronically eva d by: Michael Devi MD 05/07/2024 10:55 AM EST Dictated By: Michael Joseph MD Signed By: <Electronically signed by Michael Branch MD in OV> 05/07/24 1055 DD/ 1535 TD/TT: 04/01/24 1553 Trapeze Performer: Complete Blood Count Auto Di ff Reviewed date:01/01/2024 01:56:59 PM Interpretation: Performing Lab:[facility], [address] [place] [phone] Notes/Report: White Blood Count 9.3 4.8-10.8 X10*3/uL Red Blood Count 5.14 4.60-5.80 X10*6/uL Hemoglobin 15.1 14.0-18.0 g/dl Hematocrit 45.6 42.0-52.0 % Mean Corpuscular Volume 88.7 80.0-98.0 fL Mean Corpuscular Hemoglobin 29.4 27.0-33.0 pg Mean Corpuscular HGB Conc 33.1 31.0-36.0 g/dl Red Cell Distribution Width 13.5 11.0-16.0 % Platelet Count 301 160-400 X10*3/uL Mean Platelet Volume 10.3 9.4-12.4 fL Neutrophils Percent Auto 54.8 45-73 % Imm Gran Pct Auto 0.4 0.0-0.4 % Lymphocytes Percent Auto 31.6 20-40 % Monocytes Percent Auto 8.0 2-11 % Eosinophils Percent Auto 4.1 0-4 % Basophils Percent Auto 1.1 0-2 % NRBC Pct Auto 0.0 0.0-0.2 /100WBC Neutrophils Absolute Auto 5.1 2.0-8.3 x10*3/uL Imm Gran Abs Auto 0.04 0.00-0.03 X10*3/uL Lymphocytes Absolute Auto 2.9 1.2-4.9 X10*3/uL Monocytes Absolute Auto 0.7 0.1-1.2 X10*3/uL Eosinophils Absolute Auto 0.4 0.0-0.4 X10*3/uL Basophils Absolute Auto 0.1 0.0-0.2 X10*3/uL NRBC Abs Auto 0.000 0.0-0.012 X10*3/uL Comprehensive Met. Panel Reviewed date:01/01/2024 01:56:59 PM Interpretation: Performing Lab:[facility], [address] [place] [phone] Notes/Report: Sodium 139 135-145 mmol/L Potassium 4.5 3.3-5.1 mmol/L Chloride 109 96-108 mmol/L Carbon Dioxide 24 22-29 mmol/L Anion Gap 11 12-20 Blood Urea Nitrogen 20 9-16 mg/dL Creatinine 0.88 0.5-1.4 mg/dL Estimated Glomerular Filt Rate > 60 NOTE: For -Serbian individuals, multiply the result by 1.210. Chronic Kidney Disease: Estimated GFR < 60 mL/min/1.73m2 Severe Kidney Disease: Estimated GFR < 15 mL/min/1.73m2 Glucose Random 92 60-115 mg/dL Calcium 9.8 8.4-10.2 mg/dL Bilirubin Total 0.6 0.0-1.0 mg/dL Aspartate Amino Transferase 17 5-37 U/L Alanine Aminotransferase 16 0-40 U/L Total Protein 7.5 6.5-8.0 g/dL Albumin Level 4.5 3.5-5.0 g/dL Alkaline Phosphatase 68 39-117 U/L US abdomen complete Reviewed date:01/01/2024 01:56:59 PM Interpretation: Performing Lab: Notes/Report: [facility] [address] [place] [address] [place] [address] Ultrasound Report Signed Patient: Florin Lyle MR#: [id number] : 1970 Acct:[id number] Age/Sex: 53 / M ADM Date: 12/17/23 [facility] Attending Dr: Derrick Castro MD Ordering Physician: Derrick Castro MD Date of Service: 12/17/23 Procedure(s): US abdomen complete Accession Number(s): [id number] cc: Derrick Castro MD EXAMINATION: US ABDOMEN COMPLETE CLINICAL INFORMATION: Upper abdominal pain. COMPARISON: None available. TECHNIQUE: Real-time imaging of the abdominal viscera. FINDINGS: PANCREAS: Pancreas could not be evaluated as it was obscured by bowel gas. ABDOMINAL AORTA: The proximal, mid, and distal segments are normal in caliber. INFERIOR VENA CAVA: Visualized portions are normal. LIVER: The liver is normal in size. The liver contour is normal. There is diffuse increased liver parenchymal echogenicity, consistent with hepatic steatosis. There is a complex cyst present with septation in the right lobe of the liver measuring 1.8 cm. There is no intrahepatic biliary duct dilatation seen. GALLBLADDER: The gallbladder is physiologically distended without evidence of stones, sludge, polyps, wall thickening or pericholecystic fluid. COMMON BILE DUCT: Normal in caliber measuring 0.3 cm in diameter. LEFT KIDNEY: No hydronephrosis. No renal calculi or focal parenchymal lesions. The kidney measures 11.3 cm in maximum dimension. RIGHT KIDNEY: There is a mid renal lateral mass present measuring 1.7 x 1.5 x 1.4 cm which does not appear to be a simple cyst low level echoes throughout. A solid mass cannot be excluded. No hydronephrosis. No renal calculi . The kidney measures 9.9 cm in maximum dimension. SPLEEN: Normal. The spleen measures 11.7 cm in maximum dimension. FREE FLUID: None. US/US abdomen complete IMPRESSION: 1. Hepatic steatosis. 2. Complex hepatic cyst. 3. Right renal mass. MRI is recommended for further evaluation. Dictated By: Ad Martinez MD Signed By: <Electronically signed by Ad Martinez MD in OV> 12/17/23 1109 DD/ 0935 TD/TT: Trapeze Performer: [facility] [place] [address] Ultrasound Report Signed Patient: Florin Lyle MR#: [id number] : 1970 Acct:[id number] Age/Sex: 53 / M ADM Date: 12/17/23 Loc: HO.[facility] Attending Dr: Derrick Castro MD Ordering Physician: Derrick Castro MD Date of Service: 12/17/23 Procedure(s): US abd omen complete Accession Number(s): [id number] cc: Derrick Castro MD EXAMINATION: US ABDOMEN COMPLETE CLINICAL INFORMATION: Upper abdominal pain. COMPARISON: None available. TECHNIQUE: Real-time imaging of the abdominal viscera. FINDINGS: PANCREAS: Pancreas c ould not be evaluated as it was obscured by bowel gas. ABDOMINAL AORTA: The proximal, mid, and distal segments are normal in caliber. INFERIOR VENA CAVA: Visualized portions are normal. LIVER: The liver is normal in size. The liver contour is normal. There is diffuse increased liver parenchymal echogenicity, consistent with hepatic steatosis. T here is a complex cyst present with septation in the right lobe of th e liver measuring 1.8 cm. There is no intrahepatic biliary duct dilatat ion seen. GALLBLADDER: The gallbladder is physiologically distended without evidence of stones, sludge, polyps, wall thickening or pericholecystic fluid. COMMON BILE DUCT: No rmal in caliber measuring 0.3 cm in diameter. LEFT KIDNEY: No hydronephrosis. No renal calculi or focal parenchymal lesions. The kidney measures 11.3 cm in maximum dimension. RIGHT KIDNEY: There is a mid renal lateral mass present measuring 1.7 x 1.5 x 1.4 cm which d oes not appear to be a simple cyst low level echoes throughout. A solid mass cannot be excluded. No hydronephrosis. No renal calculi . The kidney measures 9.9 cm in maximum dimension. SPLEEN: Normal. The spleen measures 11.7 cm in maximum dimension. FREE FLUID: None. U S/US abdomen complete IMPRESSION: 1. Hepatic steatosis. 2. Complex hepatic cyst. 3. Right renal mass. MRI is recommended for further evaluation. Dictated By: Ad Martinez MD Signed By: <Electronically signed by Ad Martinez MD in OV> 12/17/23 1109 DD/ 0935 TD/TT: Conveyor Belt Operator ist: SS MR abdomen wo/w con Reviewed date:05/24/2024 08:43:17 AM Interpretation: Performing Lab: Notes/Report: [address] [address] Magnetic Resonance Report Signed Patient: Florin Lyle MR#: [id number] : 1970 Acct:[id number] Age/Sex: 53 / M ADM Date: 01/02/24 Loc: HO.MRI Attending Dr: Derrick Castro MD Ordering Physician: Derrick Castro MD Date of Service: 01/02/24 Procedure(s): MR abdomen wo/w con Accession Number(s): [id number] cc: Derrick Castro MD EXAMINATION: MR ABDOMEN WITHOUT AND WITH CONTRAST CLINICAL INFORMATION: 1.7 cm kidney mass. Left upper quadrant pain. COMPARISON: Abdomen ultrasound from 12/17/2023. TECHNIQUE: MR abdomen was performed without and with use of 10 mL intravenous Gadavist gadolinium contrast on a high-field magnet. Postcontrast images are performed in multiphase dynamic sequences. Imaging was performed in 3 planes. FINDINGS: LUNG BASES: Normal. No pulmonary consolidation or pleural effusion. LIVER: Liver has normal size and contour. The estimated fat fraction of the liver is 9% (i.e., mild steatosis). A lobulated cyst with thin septation in the right lobe measures up to 1.3 cm. No suspicious hepatic lesions. GALLBLADDER AND BILIARY TREE: Gallbladder is physiologically distended and has normal wall thickness. No evidence of cholelithiasis, pericholecystic fluid or dilated bile ducts. PANCREAS: No edema, pancreatic ductal dilatation or mass. SPLEEN: Normal. ADRENAL GLANDS: Normal. KIDNEYS: Kidneys are normal in size and enhance symmetrically. No hydronephrosis or perinephric edema. An exophytic mass at the lateral upper pole of the right kidney corresponds to the lesion that had a solid appearance on the ultrasound exam from 12/17/2023. The lesion is nearly isointense compared to adjacent renal cortex on noncontrast T1-weighted images with exception of a focus of intrinsic T1 signal shortening from hemorrhage or proteinaceous material along its posterior aspect. The mass is T2 hypointense (image 24, series 4). On the dynamic postcontrast images, it demonstrates slightly heterogeneous and mild enhancement, perceptible with use of a range of interest cursor to measure changes in the signal intensity of the lesion. Otherwise, kidneys are unremarkable. BOWEL AND PERITONEUM: Stomach is unremarkable. No dilated loops of bowel. There are diverticula of the colon without evidence of diverticulitis. No bowel wall thickening or mesenteric fat stranding. No abdominal free fluid. VASCULATURE: Abdominal aorta is normal in caliber and its branches are widely patent. Inferior vena cava and renal veins are normal. LYMPH NODES: No pathologic sized lymph nodes in the abdomen. SKELETAL: No suspicious osseous lesions. There are chronic disc degenerative changes of lumbar spine at L3-L4 and L5-S1. MR/MR abdomen wo/w con IMPRESSION: * 1.5 cm exophytic mass at the lateral upper pole of the right kidney has imaging features suggestive of a papillary type renal cell carcinoma. * Mild hepatic steatosis. * Diverticulosis of the colon without diverticulitis. Dictated By: Grover Vasquez MD Signed By: <Electronically signed by Grover Vasquez MD in OV> 01/02/24 1540 DD/ 1319 TD/TT: Trapeze Performer: [address] [address] Magnetic Resonance Report Signed Patient: Florin Lyle MR#: [id number] : 1970 Acct:[id number] Age/Sex: 53 / M ADM Date: 01/02/24 Loc: HO.MRI Attending Dr: Derrick Castro MD Ordering Physician: Derrick Castro MD Date of Service: 01/02/24 Procedure(s): MR abd omen wo/w con Accession Number(s): [id number] cc: Derrick Castro MD EXAMINATION: MR ABDOMEN WITHOUT A ND WITH CONTRAST CLINICAL INFORMATION: 1.7 cm kidney mass. Left upper quadrant pain. COMPARISON: Abdomen ultrasound f rom 12/17/2023. TECHNIQUE: MR abdomen was perfo rmed without and with use of 10 mL intravenous Gadavist gadolinium contrast on a high-field magnet. Postcontrast images are performed in multiphase dynamic sequences. Imaging was performed in 3 planes. FINDINGS: LUNG BASES: Normal. No pulmonary consolidation or pleural effusion. LIVER: Liver has nor mal size and contour. The estimated fat fraction of the liver is 9% (i.e ., mild steatosis). A lobulated cyst with thin septation in the rig ht lobe measures up to 1.3 cm. No suspicious hepatic lesions. GALLBLADDER AND BILI PANKAJ TREE: Gallbladder is physiologically distended and has normal wall thickness. No evidence of cholelithiasis, pericholecystic flui d or dilated bile ducts. PANCREAS: No edema, pancreatic ductal dilatation or mass. SPLEEN: Normal. ADRENAL GLANDS: Normal. KIDNEYS: Kidneys are normal in size and enhance symmetrically. No hydronephrosis or perinephric edema. An exophytic mass at the lateral upper pole of the ri ght kidney corresponds to the lesion that had a solid appearance on the ultrasound exam from 12/17/2023. The lesion is nearly isointense compared to adjacent renal cortex on noncontrast T1-weighted images w ith exception of a focus of intrinsic T1 signal shortening from hemorrhage or proteinaceous material along its posterior aspect. Th e mass is T2 hypointense (image 24, series 4). On the dynamic postcont rast images, it demonstrates slightly heterogeneous and mild enhancement , perceptible with use of a range of interest cursor to measure changes in the signal intensity of the lesion. Otherwise, kidneys a re unremarkable. BOWEL AND PERITONEUM : Stomach is unremarkable. No dilated loops of bowel. There are diverticula of the colon without evidence of diverticulitis. No b owel wall thickening or mesenteric fat stranding. No abdominal free fluid. VASCULATURE: Abdomin al aorta is normal in caliber and its branches are widely patent. Infer ior vena cava and renal veins are normal. LYMPH NODES: No pathologic sized lymph nodes in the abdomen. SKELETAL: No suspici ous osseous lesions. There are chronic disc degenerative changes of lumbar spine at L3-L4 and L5-S1. M R/MR abdomen wo/w con IMPRESSION: * 1.5 cm exophytic m ass at the lateral upper pole of the right kidney has imaging features suggestive of a papillary type renal cell carcinoma. * Mild hepatic steatosis. * Diverticulosis of the colon without diverticulitis. Dictated By: Grover Vasquez MD Signed By: <Electronically signed by Grover Vasquez MD in OV> 01/02/24 1540 DD/ 1319 TD/TT: Conveyor Belt Operator ist: PD Complete Blood Count Auto Di ff Reviewed date:05/24/2024 08:43:17 AM Interpretation: Performing Lab:[facility], [address] [place] [phone] Notes/Report: White Blood Count 10.2 4.8-10.8 X10*3/uL Red Blood Count 5.11 4.60-5.80 X10*6/uL Hemoglobin 15.3 14.0-18.0 g/dl Hematocrit 45.6 42.0-52.0 % Mean Corpuscular Volume 89.2 80.0-98.0 fL Mean Corpuscular Hemoglobin 29.9 27.0-33.0 pg Mean Corpuscular HGB Conc 33.6 31.0-36.0 g/dl Red Cell Distribution Width 13.3 11.0-16.0 % Platelet Count 289 160-400 X10*3/uL Mean Platelet Volume 10.6 9.4-12.4 fL Neutrophils Percent Auto 56.2 45-73 % Imm Gran Pct Auto 0.3 0.0-0.4 % Lymphocytes Percent Auto 31.0 20-40 % Monocytes Percent Auto 9.0 2-11 % Eosinophils Percent Auto 2.8 0-4 % Basophils Percent Auto 0.7 0-2 % NRBC Pct Auto 0.0 0.0-0.2 /100WBC Neutrophils Absolute Auto 5.8 2.0-8.3 x10*3/uL Imm Gran Abs Auto 0.03 0.00-0.03 X10*3/uL Lymphocytes Absolute Auto 3.2 1.2-4.9 X10*3/uL Monocytes Absolute Auto 0.9 0.1-1.2 X10*3/uL Eosinophils Absolute Auto 0.3 0.0-0.4 X10*3/uL Basophils Absolute Auto 0.1 0.0-0.2 X10*3/uL NRBC Abs Auto 0.000 0.0-0.012 X10*3/uL Comprehensive Met. Panel Reviewed date:05/24/2024 08:43:17 AM Interpretation: Performing Lab:[address] [phone] Notes/Report: Sodium 143 135-145 mmol/L Potassium 4.9 3.3-5.1 mmol/L Chloride 109 96-108 mmol/L Carbon Dioxide 26 22-29 mmol/L Anion Gap 13 12-20 Blood Urea Nitrogen 17 9-16 mg/dL Creatinine 1.23 0.5-1.4 mg/dL Estimated Glomerular Filt Rate > 60 NOTE: For -Serbian individuals, multiply the result by 1.210. Chronic Kidney Disease: Estimated GFR < 60 mL/min/1.73m2 Severe Kidney Disease: Estimated GFR < 15 mL/min/1.73m2 Glucose Random 95 60-115 mg/dL Calcium 10.0 8.4-10.2 mg/dL Bilirubin Total 0.3 0.0-1.0 mg/dL Aspartate Amino Transferase 18 5-37 U/L Alanine Aminotransferase 17 0-40 U/L Total Protein 7.4 6.5-8.0 g/dL Albumin Level 4.5 3.5-5.0 g/dL Alkaline Phosphatase 69 39-117 U/L Complete Blood Count Auto Di ff (Not yet reviewed by provider) Interpretation: Performing Lab:[address] [address] Notes/Report: White Blood Count 11.0 4.8-10.8 X10*3/uL Red Blood Count 5.03 4.60-5.80 X10*6/uL Hemoglobin 14.7 14.0-18.0 g/dl Hematocrit 45.5 42.0-52.0 % Mean Corpuscular Volume 90.5 80.0-98.0 fL Mean Corpuscular Hemoglobin 29.2 27.0-33.0 pg Mean Corpuscular HGB Conc 32.3 31.0-36.0 g/dl Red Cell Distribution Width 12.9 11.0-16.0 % Platelet Count 314 160-400 X10*3/uL Mean Platelet Volume 10.9 9.4-12.4 fL Neutrophils Percent Auto 53.6 45-73 % Imm Gran Pct Auto 0.5 0.0-0.4 % Lymphocytes Percent Auto 32.1 20-40 % Monocytes Percent Auto 8.7 2-11 % Eosinophils Percent Auto 4.2 0-4 % Basophils Percent Auto 0.9 0-2 % NRBC Pct Auto 0.0 0.0-0.2 /100WBC Neutrophils Absolute Auto 5.9 2.0-8.3 x10*3/uL Imm Gran Abs Auto 0.05 0.00-0.03 X10*3/uL Lymphocytes Absolute Auto 3.5 1.2-4.9 X10*3/uL Monocytes Absolute Auto 1.0 0.1-1.2 X10*3/uL Eosinophils Absolute Auto 0.5 0.0-0.4 X10*3/uL Basophils Absolute Auto 0.1 0.0-0.2 X10*3/uL NRBC Abs Auto 0.000 0.0-0.012 X10*3/uL Erythrocyte Sedimentation Ra te (Not yet reviewed by provider) Interpretation: Performing Lab:[address] [address] Notes/Report: Erythrocyte Sedimentation Rate 10 0-15 MM/HR Patients with polycythemia and many hemoglobin abnormalities may have depressed sed rates whereas patients with anemia may have elevated sed rates. Comprehensive Met. Panel (No t yet reviewed by provider) Interpretation: Performing Lab:[address] [address] Notes/Report: Sodium 143 135-145 mmol/L Potassium 4.4 3.3-5.1 mmol/L Chloride 109 96-108 mmol/L Carbon Dioxide 27 22-29 mmol/L Anion Gap 11 12-20 Blood Urea Nitrogen 15 9-16 mg/dL Creatinine 0.98 0.5-1.4 mg/dL Estimated Glomerular Filt Rate > 60 Chronic Kidney Disease: Estimated GFR < 60 mL/min/1.73m2 Severe Kidney Disease: Estimated GFR < 15 mL/min/1.73m2 Glucose Random 90 60-115 mg/dL Calcium 9.5 8.4-10.2 mg/dL Bilirubin Total 0.3 0.0-1.0 mg/dL Aspartate Amino Transferase 22 5-37 U/L Alanine Aminotransferase 26 0-40 U/L Total Protein 7.3 6.5-8.0 g/dL Albumin Level 4.2 3.5-5.0 g/dL Alkaline Phosphatase 67 39-117 U/L Reason For Referral Reason Urgent Appointment R equest Evaluate and Treat Enlarging Neoplasm Right Kidney. Double in size from December 2023-April 2024 Will send most recent MRI done on 03/31/2024 when received Diagnosis 1 Kidney mass (N28.89) Referral Organization Derrick Castro III, MD Referring Provider First Name Derrick Referring Provider Last Name Matthew Referring Provider Speciality Internal M edicine Referred Provider Amy Conn Referred Provider Specialty Urology General Notes DJackie 05/07/2024 09:37:12 AM > Referral faxed with last 3 progress notes, MRI done on 12/2023 and US., DJackie 05/09/2024 10:48:27 AM > patient was scheduled for 05/13/2024 @ 10:[address] Tian at the [place] location [address] [place] [address] 120. [phone]. Patient was called and left a message informing of this appointment. Referral Priority Urgent Referral Appointment Date 05/13/2024 Medications Medication SIG (Take, Route, Frequency, Duration) [...] Omeprazole 20 MG TAKE 1 CAPSULE BY [facility] EVERY DAY Active Social History Tobacco Use: Social History Observation Description Date Details (start date - stop date) Current Smoker NA - NA Sex Assigned At : Social History Observation Description Sex Assigned At Male Tobacco Use/Smoking Question Answer Notes Patient is a current smoker Alcohol Screen Question Answer Notes Did you have a drink containing alcohol in the p ast year? No Points 0 Interpretation Negative Problems Problem Type SNOMED Code ICD Code Onset Dates Problem Status W/U Status Risk Notes Problem 658552737 Obesity (E66.9) Active confirmed He has lost 5 pounds over the last year. We discussed diet and nutrition. We made a plan to lose weight at a rate of one half of a pound per week. Diet restricted in fat calories and sodium combined with regular physical activity. Problem Spinal stenosis (16412887) Spinal stenosis (M48.00) Active confirmed He has a histor y of spinal stenosis and to previous lumbar spine surgery with cold procedures. An MRI is pending. Problem 279758573 Low back pain (M54.5) Active confirmed He continues to have mild back pain with most activities. It has been improved since his procedure. No change in his therapy was necessary today. Problem 49336803 Epigastric pain (R10.13) Active confirmed Problem 339634997 Erectile dysfunction (N52.9) Active confirmed This problem voss s resolved with appropriate medication. Problem 91608631 Tobacco dependen ce (F17.200) Active confirmed I strongly recommend smoking cessation. I discussed with him several strategies for accomplishing this. I have referred him to the smoking cessation classes at [facility]. I have made him aware of the health consequences of cigarette smoking. Problem 684602882 Gastroesophageal reflux disease without esophagitis (K21.9) Active confirmed His chronic esophageal symptoms are controlled with medication. It was noted that he had guaiac positive stool today. This will be pursued. Problem 43243784 Radiculopathy (M54.10) Active confirmed He did not have muscle weakness. I gave him corticosteroids and analgesics. I recommended he lie in bed in a comfortable position most of the day. Problem 949142112 Non-cardiac ches t pain (R07.89) Active confirmed This issue has resolved. He denies any radiation experiences of chest pain. Problem Kidney mass (214539491) Kidney mass (N28.89) Active confirmed There was a mas s in the right kidney with cystic. A neoplasm cannot be ruled out. This will be further evaluated is by the MRI. Problem 169901754 Renal neoplasm (D49.519) Active confirmed He has been to urology and preet-nephrectomy is being planned in August of this year. I have examined him carefully today. I have reviewed the available. Blood work. There is no contraindication for surgery at this time. The risk is small and the benefit is great. He is medically cleared for surgery with general anesthesia. Problem 25099064 Hepatic cyst (K76.89) Active confirmed A complex cyst is present in the liver and the MRI will characterize it further. Vital Signs Heart Rate 71 /min 08/26/2024 Temperature 98.8 degrees Fahrenheit 08/26/2024 Blood pressure diastolic 82 mm Hg 08/26/2024 Height 69 in in 08/26/2024 Blood pressure systolic 134 mm Hg 08/26/2024 Weight 211 lbs 08/26/2024 BMI 31.16 kg/m2 08/26/2024 Encounters Encounter Location Date Provider Diagnosis Derrick Castro III, MD [address] [place] [address] [place] [address] 08/26/2024 Derrick Castro Obesity E66.9 ; Abdo yesika pain R10.9 and Renal neoplasm D49.519 Derrick Castro III, MD [address] [place] [address] [place] [phone] 12/03/2023 Derrick Castro Upper abdominal pain , unspecified R10.10 ; Low back pain M54.5 ; Tobacco dependence F17.200 ; Obesity E66.9 ; Spinal stenosis M48.00 and Gastroesophageal reflux disease without esophagitis K21.9 Derrick Castro III, MD [address] [place] [address] [place] [phone] 01/01/2024 Derrick Castro Left upper quadrant abdominal pain R10.12 ; Hepatic cyst K76.89 ; Tobacco dependence F17.200 ; Kidney mass N28.89 ; Low back pain M54.5 ; Obesity E66.9 and Gastroesophageal reflux disease without esophagitis K21.9 Derrick Castro III, MD [address] [place] [address] [place] [address] 05/05/2024 Derrick Castro Neoplasm of right ki dney D49.511 ; Obesity E66.9 ; Tobacco dependence F17.200 ; Low back pain M54.5 ; Gastroesophageal reflux disease without esophagitis K21.9 and Spinal stenosis M48.00 Derrick Castro III, MD [address] [place] [address] [place] [address] 06/02/2024 Derrick Castro Neoplasm of right ki dney D49.511 ; Obesity E66.9 ; Tobacco dependence F17.200 ; Gastroesophageal reflux disease without esophagitis K21.9 ; Spinal stenosis M48.00 and Non-cardiac chest pain R07.89 Derrick Castro III, MD [address] [place] [address] [place] [address] 07/15/2024 Derrick Castro Renal neoplasm D49.5 19 ; Low back pain M54.5 ; Tobacco dependence F17.200 ; Non-cardiac chest pain R07.89 ; Obesity E66.9 ; Gastroesophageal reflux disease without esophagitis K21.9 and Hepatic cyst K76.89 Derrick Castro III, MD [address] [place] [address] [place] [phone] 12/03/2023 Derrick Castro III, MD [address] [place] [address] [place] [address] 01/09/2024 Derrick Castro III, MD [address] [place] [address] [place] [address] 03/28/2024 Derrick Castro Kidney mass N28.89 ; Obesity E66.9 and Epigastric pain R10.13 Derrick Castro III, MD [address] [place] [address] [place] [phone] 05/12/2024 Derrick Castro Assessments Encounter Date Diagnosis (ICD Code) Assessment Notes T reatment Notes Treatment Clinical Notes 08/26/2024 Obesity (ICD-10 - E66.9) 12/03/2023 Low back pain (ICD-1 0 - M54.5) Since his surgery. The pain has been very well and minimal, but present. It did not seem to him like a major problem at this time. Current therapy was continued. 12/03/2023 Upper abdominal pain , unspecified (ICD-10 - R10.10) This will be investigated with blood work and ultrasound followed by a repeat visit. 01/01/2024 Hepatic cyst (ICD-10 - K76.89) A complex cyst is present in the liver and the MRI will characterize it further. 01/01/2024 Left upper quadrant abdominal pain (ICD-10 - R10.12) Pain he remains in the ultrasound showed no abnormalities in that area. An MRI of the abdomen has been requested. 05/05/2024 Obesity (ICD-10 - E66.9) He has lost 5 pounds over the last year. We discussed diet and nutrition. We made a plan to lose weight at a rate of one half of a pound per week. Diet restricted in fat calories and sodium combined with regular physical activity. 05/05/2024 Neoplasm of right kidney (ICD-10 - D49.511) He has been referred to urology for consideration of antineoplastic therapy. He would be a good medical candidate for nephrectomy. 06/02/2024 Obesity (ICD-10 - E66.9) He has lost 5 pounds over the last year. We discussed diet and nutrition. We made a plan to lose weight at a rate of one half of a pound per week. Diet restricted in fat calories and sodium combined with regular physical activity. 06/02/2024 Neoplasm of right kidney (ICD-10 - D49.511) He has seen urology. A right heminephrectomy has been scheduled on July 21, 2024. Patient intends to proceed with surgery. 07/15/2024 Low back pain (ICD-1 0 - M54.5) He continues to have mild back pain with most activities. It has been improved since his procedure. No change in his therapy was necessary today. 07/15/2024 Renal neoplasm (ICD-10 - D49.519) He has been to urology and preet-nephrectomy is being planned in August of this year. I have examined him carefully today. I have reviewed the available. Blood work. There is no contraindication for surgery at this time. The risk is small and the benefit is great. He is medically cleared for surgery with general anesthesia. 03/28/2024 Kidney mass (ICD-10 - N28.89) 08/26/2024 Abdominal pain (ICD-10 - R10.9) 12/03/2023 Tobacco dependence (ICD-10 - F17.200) I strongly recommend smoking cessation. I discussed with him several strategies for accomplishing this. I have referred him to the smoking cessation classes at [facility]. I have made him aware of the health consequences of cigarette smoking. 01/01/2024 Tobacco dependence (ICD-10 - F17.200) I strongly recommend smoking cessation. I discussed with him several strategies for accomplishing this. I have referred him to the smoking cessation classes at [facility]. I have made him aware of the health consequences of cigarette smoking. 05/05/2024 Tobacco dependence (ICD-10 - F17.200) I strongly recommend smoking cessation. I discussed with him several strategies for accomplishing this. I have referred him to the smoking cessation classes at [facility]. I have made him aware of the health consequences of cigarette smoking. 06/02/2024 Tobacco dependence (ICD-10 - F17.200) I strongly recommend smoking cessation. I discussed with him several strategies for accomplishing this. I have referred him to the smoking cessation classes at [facility]. I have made him aware of the health consequences of cigarette smoking. 07/15/2024 Tobacco dependence (ICD-10 - F17.200) I strongly recommend smoking cessation. I discussed with him several strategies for accomplishing this. I have referred him to the smoking cessation classes at [facility]. I have made him aware of the health consequences of cigarette smoking. 03/28/2024 Obesity (ICD-10 - E66.9) 08/26/2024 Renal neoplasm (ICD-10 - D49.519) 12/03/2023 Obesity (ICD-10 - E66.9) He has lost 5 pounds over the last year. We discussed diet and nutrition. We made a plan to lose weight at a rate of one half of a pound per week. Diet restricted in fat calories and sodium combined with regular physical activity. 01/01/2024 Kidney mass (ICD-10 - N28.89) There was a mass in the right kidney with cystic. A neoplasm cannot be ruled out. This will be further evaluated is by the MRI. 05/05/2024 Low back pain (ICD-1 0 - M54.5) Since his surgery. The pain has been very well and minimal, but present. It did not seem to him like a major problem at this time. Current therapy was continued. 06/02/2024 Gastroesophageal reflux disease without esophagitis (ICD-10 - K21.9) His chronic esophageal symptoms are controlled with medication. It was noted that he had guaiac positive stool today. This will be pursued. 07/15/2024 Non-cardiac chest pain (ICD-10 - R07.89) This issue has resolved. He denies any radiation experiences of chest pain. 03/28/2024 Epigastric pain (ICD-10 - R10.13) 12/03/2023 Spinal stenosis (ICD-10 - M48.00) He has a history of spinal stenosis and to previous lumbar spine surgery with cold procedures. An MRI is pending. 01/01/2024 Low back pain (ICD-1 0 - M54.5) Since his surgery. The pain has been very well and minimal, but present. It did not seem to him like a major problem at this time. Current therapy was continued. 05/05/2024 Gastroesophageal reflux disease without esophagitis (ICD-10 - K21.9) His chronic esophageal symptoms are controlled with medication. It was noted that he had guaiac positive stool today. This will be pursued. 06/02/2024 Spinal stenosis (ICD-10 - M48.00) He has a history of spinal stenosis and to previous lumbar spine surgery with cold procedures. An MRI is pending. 07/15/2024 Obesity (ICD-10 - E66.9) He has lost 5 pounds over the last year. We discussed diet and nutrition. We made a plan to lose weight at a rate of one half of a pound per week. Diet restricted in fat calories and sodium combined with regular physical activity. 12/03/2023 Gastroesophageal reflux disease without esophagitis (ICD-10 - K21.9) His chronic esophageal symptoms are controlled with medication. It was noted that he had guaiac positive stool today. This will be pursued. 01/01/2024 Obesity (ICD-10 - E66.9) He has lost 5 pounds over the last year. We discussed diet and nutrition. We made a plan to lose weight at a rate of one half of a pound per week. Diet restricted in fat calories and sodium combined with regular physical activity. 05/05/2024 Spinal stenosis (ICD-10 - M48.00) He has a history of spinal stenosis and to previous lumbar spine surgery with cold procedures. An MRI is pending. 06/02/2024 Non-cardiac chest pain (ICD-10 - R07.89) This issue has resolved. He denies any radiation experiences of chest pain. 07/15/2024 Gastroesophageal reflux disease without esophagitis (ICD-10 - K21.9) His chronic esophageal symptoms are controlled with medication. It was noted that he had guaiac positive stool today. This will be pursued. 01/01/2024 Gastroesophageal reflux disease without esophagitis (ICD-10 - K21.9) His chronic esophageal symptoms are controlled with medication. It was noted that he had guaiac positive stool today. This will be pursued. 07/15/2024 Hepatic cyst (ICD-10 - K76.89) A complex cyst is present in the liver and the MRI will characterize it further. Plan Of Treatment Pending Test Test Name Order Date PROFILE, FASTING (COMPREHENSIVE METABOLI C) 11/27/2022 PROFILE, FASTING (COMPREHENSIVE METABOLI C) 11/23/2021 PROFILE, FASTING (COMPREHENSIVE METABOLI C) 07/31/2018 PROFILE, FASTING (COMPREHENSIVE METABOLI C) 06/22/2017 PROFILE, RANDOM (COMPREHENSIVE METABOLIC ) 08/26/2024 LIPID PANEL 06/22/2017 LIPID PANEL 11/27/2022 LIPID PANEL 07/31/2018 FERRITIN 11/27/2022 PSA, TOTAL 07/31/2018 PSA, TOTAL 11/23/2021 CBC w DIFF 11/27/2022 CBC w DIFF 07/31/2018 CBC w DIFF 06/22/2017 CBC w DIFF 08/26/2024 CBC w DIFF 11/23/2021 SED RATE (ESR) 08/26/2024 LYME DISEASE IgG/IgM WB 11/23/2021 CT ABD WITH CONTRAST 08/26/2024 MRI ABD W&WO CONTRAST 01/01/2024 MRI CERVICAL SPINE W&WO CONTRAST 018 MRI LUMBAR SPINE W&WO CONTRAST 0 US ABD 12/03/2023 Complete Blood Count Auto Diff 5 Erythrocyte Sedimentation Rate 5 Comprehensive Met. Panel 08/26/2024 Lipid Panel 11/23/2021 Next Appt Details Provider Name:Derrick Castro, 12/03/2024 02:00:00 PM, [address] [place] [address] [address], [place], [address], Insurance Providers Payer Name Payer Address Payer Phone Subscriber Number Group Number Insured Name Patient Relationship to Insured Coverage Start Date Coverage End Date [facility] [address] [place], [place] [id number] LyleFlorin Self - patient is the insured Medical (General) History Medical History History ICD Code chronic lumbar back pain atypical right-sided chest pain tobacco dependence obesity 2.3 cm exophytic right renal neoplasm Back surgery - Patient has a history of back surgery. Surgical History Surgery Date(Month/Year) Back surgery No history Colonoscopy, [facility], Dr. Derrick Dye 2020 L-3 and L-4 04/2020 Operative Note: L2-L3 decomp ression, reoperative L5-S1 decompression, reoperative left L3-L4 microdiskectomy, 2016-07-11 Back Surgery, 17 yrs ago Hospitalization History Reason Date(Month/Year) No history
== END 2024-08-26 15:35 | disposition home or self-care (01) ==
LOC: HO.LAB 15:34
PROVIDERS: PCP Internal Medicine Medical Oncology; Visit Provider Internal Medicine Medical Oncology
DX: E66.9 Obesity, unspecified (principal); R10.9 Unspecified abdominal pain
CPT/HCPCS: 36415; 80053; 85025; 85652

== ENCOUNTER 2024-09-08 11:18 | Outpatient (REF) | payer BC, SELFPAY ==
--- NOTE | ~2024-09-08 | CT_ITS ---
EXAMINATION: CT ABDOMEN WITH IV CONTRAST HISTORY: ABDOMEN PAIN COMPARISON: Correlation is made with an MRI of the abdomen without and with contrast dated 04/01/2024. TECHNIQUE: CT scan of the abdomen was performed following administration of 85 mL Omnipaque 350 using standard departmental protocol. Coronal and sagittal reformatted images were generated and reviewed. Oral contrast material was not administered at the request of the referring physician. This CT exam was performed with one or more of the following dose reduction techniques: automated exposure control, adjustment of the mA and/or kV according to patient size, use of iterative reconstruction technique. DLP: 453 mGy-cm FINDINGS: LOWER CHEST: The visualized lung bases are clear. There is no pleural effusion. CARDIOVASCULATURE: The heart is normal in size. There is no pericardial effusion. LIVER: The liver is normal in size and contour. There is a 1.2 cm cyst in the right lobe. The hepatic and portal veins are patent. GALLBLADDER / BILE DUCTS: The gallbladder is unremarkable. There is no intra or extrahepatic biliary ductal dilatation. SPLEEN: The spleen is normal in size. No focal splenic lesion is identified. PANCREAS: The pancreas is unremarkable in appearance. ADRENAL GLANDS: Within normal limits. 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 No residual mass is identified. No renal calculi are identified. There is no hydronephrosis. No renal masses are identified. LYMPH NODES: No abdominal or pelvic lymphadenopathy. VASCULATURE: The abdominal aorta demonstrates atherosclerotic calcification, but is normal in caliber. MESENTERY/PERITONEUM: No free fluid. No masses. There is no free intraperitoneal gas. STOMACH: The stomach is unremarkable. SMALL BOWEL: The visualized small bowel is normal in caliber. COLON: There is extensive colonic diverticulosis. No evidence of diverticulitis involving the visualized portion of the colon. APPENDIX: Normal. BONES / SOFT TISSUES: There is degenerative disc disease of the spine. 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 No residual mass. Electronically signed by: Derrick Sanchez MD 09/08/2024 12:31 PM EDT
[2024-09-08] MEDS: iohexoL 350 MG/ML 100 ML INFUS..BTL IV (11:55)
--- OUTSIDE RECORDS SUMMARY | 2024-09-08 13:27 | XMS_ITS ---
Author Organization Derrick Castro III, MD Address [address] [place] [address] [place] [address] Care Team Providers Care Engineer Technical Staff Name Role Phone Derrick Castro Primary Care Provider Allergies Allergen (clinical drug ingredient) Drug/Non Drug Allergy documented on EMR Reaction Allergy Type Onset Date Status Seasonale Unknown Drug Allergy Active REASON FOR VISIT pain right side ribs and abdomen, Insomnia, recent right nephrectomy, Renal cancer, Tobacco dependence, Obesity Medications Medication SIG (Take, Route, Frequency, Duration) [...] 20 MG TAKE 1 CAPSULE BY [facility] EVERY DAY Active Social History Tobacco Use: Social History Observation Description Date Details (start date - stop date) Current Smoker NA - NA Sex Assigned At : Social History Observation Description Sex Assigned At Male Tobacco Use/Smoking Question Answer Notes Patient is a current smoker Problems Problem Type SNOMED Code ICD Code Onset Dates Problem Status W/U Status Risk Notes Problem Abdominal pain (18137641) Abdominal pain (R10.9) Active confirmed His surgery was July 21, 2024. He was discharged from the hospital July 22, 2024. His incisional pain has continued to improve, but he is complaining of severe pain in the right lower and upper abdomen which has failed to improve. He has lost 7 pounds. I have ordered a CT scan of the abdomen to see if there is any negative consequence from the surgery. Problem 5162921 Primary insomnia (F51.01) Active confirmed He states that the abdominal pain makes it difficult to sleep. I have given him a limited prescription for trazodone. Vital Signs Temperature 98.8 degrees Fahrenheit 08/27/19 25 Blood pressure systolic 134 mm Hg 08/27/19 25 Blood pressure diastolic 82 mm Hg 025 Heart Rate 71 /min 08/26/2024 Height 69 in in 08/26/2024 Weight 211 lbs 08/26/2024 BMI 31.16 kg/m2 08/26/2024 Encounters Encounter Location Date Provider Diagnosis Derrick Castro III, MD [address] [place] [address] [place] [address] 08/26/2024 Derrick Castro Obesity E66.9 ; Abdominal pain R10.9 ; Renal neoplasm D49.519 ; Tobacco dependence F17.200 ; Spinal stenosis M48.00 and Primary insomnia F51.01 Assessments Encounter Date Diagnosis (ICD Code) Assessment Notes Treatment Notes Treatment Clinical Notes 08/26/2024 Obesity (ICD-10 - E66.9) His body mass index is 31. He has lost 7 pounds. The other surgery. We discussed ways through which he could continue weight loss and maintain proper nutrition. 08/26/2024 Abdominal pain (ICD-10 - R10.9) His surgery was July 21, 2024. He was discharged from the hospital July 22, 2024. His incisional pain has continued to improve, but he is complaining of severe pain in the right lower and upper abdomen which has failed to improve. He has lost 7 pounds. I have ordered a CT scan of the abdomen to see if there is any negative consequence from the surgery. 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 The surgery was uneventful. He continues to have pain however in the abdomen. 08/26/2024 Tobacco dependence (ICD-10 - F17.200) I strongly recommend smoking cessation. I discussed with him several strategies for accomplishing this. I have referred him to the smoking cessation classes at [facility]. I have made him aware of the health consequences of cigarette smoking. 08/26/2024 Spinal stenosis (ICD-10 - M48.00) He has a history of spinal stenosis and to previous lumbar spine surgery with cold procedures. An MRI is pending. 08/26/2024 Primary insomnia (ICD-10 - F51.01) He states that the abdominal pain makes it difficult to sleep. I have given him a limited prescription for trazodone. Plan Of Treatment Medication Medication Name Sig [...] 20 MG TAKE 1 CAPSULE BY [facility] EVERY DAY Pending Test Test Name Order Date PROFILE, RANDOM (COMPREHENSIVE METABOLIC ) 08/26/2024 CBC w DIFF 08/26/2024 SED RATE (ESR) 08/26/2024 CT ABD WITH CONTRAST 08/26/2024 Next Appt Details Follow Up: Six months, Reaso n: Follow up on post-surgery discomfort Provider Name:Derrick Castro, 12/03/2024 02:00:00 PM, [address] [place] [address] [address], [place], [address], Progress Notes * Florin LYLEDOB:1970 ([age] yo M)Acc No.[id number]:08/26/2024 Progress Notes Patient:?Florin LYLE Provider:?Derrick Castro MD :1970???Age:54 Y???Sex:Male Chris e:08/26/2024 Address:[address] [place], [place] [id number] Subjective: * Chief Complaints: * ???Pain right side ribs and abdomenInsomniaRecent right nephrectomyRenal cancerTobacco dependenceObesity * HPI: ???COVID-19 Screening:?Questions?Have you had any new onset fever, chills, cough, congestion, sore throat, shortness of breath, muscle aches??No ???:? The 54-year-old male patient had a surgery on July 15, 2024. He has been experiencing discomfort and trouble sleeping since the surgery. He describes a feeling of a cramp from below his ribs all the way down. The discomfort intensifies when he is driving or sitting in the truck. He also mentions that he has been unable to fall asleep for hours. He has been experiencing this discomfort since the surgery and it has been prolonging longer than expected. He also had a bad stomach virus where he was vomiting violently for a night and a half. He also mentions discomfort in his lower back which he describes as a sharpness when he moves or bends in certain ways. He also mentions a discomfort in his right side which he describes as a huge cramp. He also mentions that he feels discomfort when he breathes in heavily. * ROS:?General/Constitutional:?pain?A niece lower right ribs, right upper quadrant of abdomen right lower quadrant of the abdomen.?Chills?denies.?Fatigue?admits.?Fever?denies.?ENT:?Decreased hearing?denies.?Respiratory:?Cough?non-productive.?Cardiovascular:?Chest pain with exertion?denies.?Dyspnea on exertion?denies.?Shortness of breath?denies.?Gastrointestinal:?Constipation?occasional.?Decreased appetite?denies.?Diarrhea?denies.?Heartburn?denies.?Nausea?denies.?Rectal bleeding?denies.?Vomiting?denies.?Hematology:?bruising?denies.?petechiae?denies.?Swollen glands?none have been noted.?Genitourinary:?Frequent urination?twice a night.?Musculoskeletal:?Muscle aches?denies.?Painful joints?denies.?Sciatica?denies.?Weakness?denies.?Skin:?Itching?denies.?Rash?denies.?Skin lesion(s)?denies.?Neurologic:?Difficulty speaking?denies.?Dizziness?denies.?Headache?denies.?Low back pain?denies.?Psychiatric:?Depressed mood?which is moderate.? * Medical History:? * Surgical History:?Back Surge ry, 17 yrs agoOperative Note: L2-L3 decompression, reoperative L5-S1 decompression, reoperative left L3-L4 microdiskectomy, [id number]-3 and L-4 04/2020Colonoscopy, [facility], Dr. Derrick Dye history Back surgery Surgery on july 15, 202406/2024 * Hospitalization/Major Diagno stic Procedure:?No history Hospitalized for 24 hours after surgery on july 15, 202406/2024 * Family History:?Father: dece ased 56 yrs, Cancer Larynx, diagnosed with Cancer.?Mother: alive 72 yrs, breast cancer.?Children: alive.?Siblings: alive.?2 brother(s) , 1 sister(s) - healthy. 2 daughter(s) - healthy. .? He has 2 brothers, Sarah and Marcos and one sister Elizabeth. Sarah is in a senior living because of a traumatic brain injury. He has 2 children Ashley and Stacey who are healthy and well. He has no family history of cancer other than paternal laryngeal cancer. * Social History:?Tobacco Use:?Tobacco Use/Smoking?Patient is a?current smoker ???He is with 2 children. He is currently working. Job application: The patient is considering a job offer in [place], [place]. Smoking - Patient is a smoker [...] Verified] Objective: * Vitals:?Ht: 69 in, Wt: 211, [...] no ascites, no organomegaly, no mass, centripital obesity, Several laparotomy scars right abdominal anterior.?RECTAL EXAM:?not examined.?MUSCULOSKELETAL:?extremities unremarkable, no clubbing, cyanosis or edema.?PERIPHERAL PULSES:?normal.?NEUROLOGIC:?alert and oriented, cranial nerves 2-12 grossly intact, deep tendon reflexes 2+ symmetrical, motor strength normal upper and lower extremities, sensory exam intact.?PSYCH:?alert, oriented.? Assessment: * Assessment: 1.?Abdominal pain - R10.9 (P rimary)???Notes :His surgery was July 21, 2024.? He was discharged from the hospital July 22, 2024.? His incisional pain has continued to improve, but he is complaining of severe pain in the right lower and upper abdomen which has failed to improve.? He has lost 7 pounds.? I have ordered a CT scan of the abdomen to see if there is any negative consequence from the surgery.???2.?Obesity - E66.9???Notes :His body mass index is 31.? He has lost 7 pounds.? The other surgery.? 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 The surgery was uneventful.? He continues to have pain however in the abdomen.???4.?Tobacco dependence - F17.200???Notes :I strongly recommend smoking cessation. I discussed with him several strategies for accomplishing this. I have referred him to the smoking cessation classes at [facility]. I have made him aware of the health consequences of cigarette smoking.???5.?Spinal stenosis - M48.00???Notes :He has a history of spinal stenosis and to previous lumbar spine surgery with cold procedures. An MRI is pending.???6.?Primary insomnia - F51.01???Notes :He states that the abdominal pain makes it difficult to sleep.? I have given him a limited prescription for trazodone.??? Plan: * Treatment: 2.?Obesity?LAB: PROFILE, RANDOM (COMPREHENSIVE METABOLIC) ?LAB: CBC w DIFF ?LAB: SED RATE (ESR) 3.?Renal neoplasm?Imaging: CT ABD WITH CONTRAST 4.?Others? [...] day, 30 days, 30, Refills 5.?? * Procedure Codes:? * Preventive Medicine:? ??Counseling:?Care [...] dangers of tobacco use and urged to quit.?08/26/2024 ?Patient Lifestyle Goals?Patient wants to quit, Patient does not want to quit ?Treatment Goals?Cut down by 1 cigarette a week, Set a quit date ?Barriers?Stress, Social smoker ?Self-Management Plan?Make a plan to cut down number of cigarettes over time and set a date to work towards quitting * Follow Up:?Six months (Reaso n: Follow up on post-surgery discomfort) * Images: * Sign off status: Completed true * Provider:?Derrick Castro MD Date:?09/2024 Generated for Radha hurst/Zina/Herberth on:?09/08/2024 01:27 PM EDT History and Physical Notes * HPI (History [...] no ascites, no organomegaly, no mass, centripital obesity, Several laparotomy scars right abdominal anterior NEUROLOGIC: alert and oriented, cranial nerves 2-12 [...]
--- OUTSIDE RECORDS SUMMARY | 2024-09-08 13:28 | XMS_ITS | Patient Health Record ---
Author Organization [facility] Address [address] [place] [address] Care Team Providers Care Lower School Music Teacher Name Role Phone Derrick Castro MD Primary Care Provider UnavailDerrick Blanc Unavailable [phone] Allergies No Known Allergies Reason For Referral No Information Medications Medication SIG (Take, Route, Fr equency, Duration) Notes Start Date End Date Status ibuprofen Active Omeprazole 20 MG 1 capsule 30 minutes before morning meal Orally Once a day Active Immunizations Vaccine Route Administration Date Status Comme nts Influenza Unknown 02/24/2020 Administered Social History Tobacco Use: Social History Observation Description Date Details (start date - stop date) Current Smoker NA - NA Tobacco Use/Smoking Question Answer Notes Patient is a current smoker How often do you smoke cigarettes? every day How many cigarettes a day do you smoke? 21-30 Alcohol Screen Question Answer Notes Did you [...] Never (0 point) Points 4 Interpretation Positive Section Notes: Smokes 1 PPD, occ. alcohol Problems Problem Type SNOMED Code ICD Code Onset Dates Problem Status W/U Status Risk Notes Problem 408330623 Encounter for screening for malignant neoplasm of colon (Z12.11) Active confirmed Problem Diverticular disease of colon (696614661) Diverticulosis of large intestine without perforation or abscess without bleeding (K57.30) Active confirmed Problem Gastroesophageal reflux disease without esophagitis (911218046) Gastroesophageal reflux disease without esophagitis (K21.9) Active confirmed Problem 979147940 Gastroesophageal reflux disease, unspecified whether esophagitis present (K21.9) Active confirmed Plan Of Treatment Future Test Test Name Order Date UPPER GI ENDOSCOPY 12/24/2020 COLONOSCOPY 12/24/2020 Insurance Providers Payer Name Payer Address Payer Phone Subscriber Number Group Number Insured Name Patient Relationship to Insured Coverage Start Date Coverage End Date [facility] [address] [place], [place] [id number] [phone] [id number] ASHLEY Self - patient is the insured Medical (General) History Medical History History ICD Code Denies CO,DM,CVA,Lung disease,renal dise ase Back pain GERD Surgical History Surgery Date(Month/Year) Lower back surgery for disc disease x 3, most recently in 04/2020
--- OUTSIDE RECORDS SUMMARY | 2024-09-08 13:28 | XMS_ITS | Clinical Summary ---
Author Organization [facility] Address [address] [place] [address] Care Team Providers Care Cut Off Sawyer Name Role Phone Derrick Castro MD Primary Care Provider [phone] Social History Tobacco Use Types Packs/Day Years [...] age to complete this topic Care Teams Cut Off Sawyer Relationship Specialty Start Date End Date Derrick Castro MD [address] [address] PCP - General Oncology 02/13/18
--- OUTSIDE RECORDS SUMMARY | 2024-09-08 13:28 | XMS_ITS ---
Author Organization Derrick Castro III, MD Address [address] [place] [address] Care Team Providers Care Skilled Nursing Professional Name Role Phone Derrick Castro Primary Care Provider [phone] Allergies Allergen (clinical drug ingredient) Drug/Non Drug [...] Date Provider Diagnosis Derrick Castro III, MD [address] [place] [address] [place] [address] 08/05/2024 Derrick Castro Plan Of Treatment Medication Medication Name Sig Start Date Stop Date Notes Sildenafil Citrate 100 MG TAKE 1 TABLET BY MOUTH EVERY DAY NEEDED LORazepam 1 MG 1 tablet at bedtime as needed Orally Once a day for anxiety 06/02/2024 Omeprazole 20 MG TAKE 1 CAPSULE BY [facility] EVERY DAY Next Appt Details Provider Name:Derrick Castro, 12/03/2024 02:00:00 PM, [address] [place] [address] [place], [address], Progress Notes * Florin LYLEDOB:1970 ([age] yo M)Acc No.[id number]:08/05/2024 Progress Notes Patient:?Florin LYLE Provider:?Derrick Castro MD :1970???Age:54 Y???Sex:Male Chris e:08/05/2024 Address:[address] [place], [place] [id number] Subjective: * Chief Complaints: * ???1. Follow up. * HPI: ???COVID-19 Screening:?Questions?Have you had any new onset fever, chills, cough, congestion, sore throat, shortness of breath, muscle aches??No * ROS:?General/Constitutional:?pain?only normal aches and pains.?Chills?denies.?Fatigue?admits.?Fever?denies.?ENT:?Decreased hearing?denies.?Respiratory:?Cough?denies.?Cardiovascular:?Chest pain with exertion?denies.?Dyspnea on exertion?denies.?Shortness of breath?denies.?Gastrointestinal:?Constipation?denies.?Decreased appetite?denies.?Diarrhea?denies.?Heartburn?denies.?Nausea?denies.?Rectal bleeding?denies.?Vomiting?denies.?Hematology:?bruising?denies.?petechiae?denies.?Swollen glands?none have been noted.?Genitourinary:?Frequent urination?denies.?Musculoskeletal:?Muscle aches?denies.?Painful joints?denies.?Sciatica?denies.?Weakness?denies.?Skin:?Itching?denies.?Rash?denies.?Skin lesion(s)?denies.?Neurologic:?Difficulty speaking?denies.?Dizziness?denies.?Headache?denies.?Low back pain?denies.?Psychiatric:?Depressed mood?denies.? 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 * Surgical History:?Back Surge ry, 17 yrs ago, Operative Note: L2-L3 decompression, reoperative L5-S1 decompression, reoperative left L3-L4 microdiskectomy, 2016-07-11, L-3 and L-4 04/2020, Colonoscopy, [facility], Dr. Derrick Dye 2020, No history , Back surgery . * Hospitalization/Major Diagno stic Procedure:?No history . * Family History:?Father: dece ased 56 yrs, Cancer Larynx, diagnosed with Cancer.?Mother: alive 72 yrs, breast cancer.?Children: alive.?Siblings: alive.?2 brother(s) , 1 sister(s) - healthy. 2 daughter(s) - healthy. .? He has 2 brothers, Sarah and Marcos and one sister Elizabeth. Sarah is in a detention because of a traumatic brain injury. He has 2 children Ashley and Stacey who are healthy and well. He has no family history of cancer other than paternal laryngeal cancer. * Social History:?Tobacco Use:?Tobacco Use/Smoking?Patient is a?current smoker ???He is with 2 children. He is currently working. Job application: The patient is considering a job offer in [place], [place]. Smoking - Patient is a smoker [...] Castro MD Date:?07/26 Generated for Radha hurst/Faxing/eTransmitting on:?09/08/2024 01:28 PM EDT History and Physical Notes * [...]
--- OUTSIDE RECORDS SUMMARY | 2024-09-08 13:28 | XMS_ITS ---
Author Organization Derrick Castro III, MD Address [address] [place] [address] [place] [address] Care Team Providers Care Farm Reporter Name Role Phone Derrick Castro Primary Care Provider [phone] ABD w/ Contrast Appt Social History Sex Assigned At : Social History Observation Description Sex Assigned At Male Encounters Encounter Location Date Provider Diagnosis Derrick Castro III, MD [address] [place] [address] [place] [address] 09/04/2024 Derrick Castro Plan Of Treatment Next Appt Details Provider Name:Derrick Castro, 12/03/2024 02:00:00 PM, [address] [place] [address] [address], [place], [address], Progress Notes * Florin LYLEDOB:1970 ([age] yo M)Acc No.[id number]:09/04/2024 Patient:?Florin LYLE :1970???Age:54 Y???Sex:Male Address:[facility] [place] [address] * true * Date:? Generated for Printi ng/Fagilliang/eTransmitting on:?09/08/2024 01:27 PM EDT
--- OUTSIDE RECORDS SUMMARY | 2024-09-08 13:28 | XMS_ITS | Patient Health Record ---
Author Organization Derrick Castro III, MD Address [address] [place] [address] Care Team Providers Care Physical Anthropologist Name Role Phone Derrick Castro Primary Care Provider [phone] Allergies Allergen (clinical drug ingredient) Drug/Non Drug [...] Panel Reviewed date:01/01/2024 01:56:59 PM Interpretation: Performing Lab:[facility], [address] [place] [phone] Notes/Report: Triglycerides 143 <150 mg/dL Desirable Triglyceride: [...] Amylase Reviewed date:05/24/2024 08:43:17 AM Interpretation: Performing Lab:[facility], [address] [place] [phone] Notes/Report: Amylase 46 28-100 U/L Lipase Reviewed date:05/24/2024 08:43:17 AM Interpretation: Performing Lab:[facility], [address] [place] [phone] Notes/Report: Lipase 18 8-78 U/L MR abdomen wo/w con Reviewed date:05/24/2024 08:43:17 AM Interpretation: Performing Lab: Notes/Report: [address] [place] [address] Magnetic Resonance Report Signed Patient: Florin Lyle MR#: [id number] : 1970 Acct:[id number] Age/Sex: 53 / M ADM Date: 04/01/24 Loc: HO.MRI Attending Dr: Derrick Castro MD Ordering Physician: Derrick Castro MD Date of Service: 04/01/24 Procedure(s): MR abdomen wo/w con Accession Number(s): [id number] cc: Derrick Castro MD EXAMINATION: MR ABDOMEN [...] 05/07/24 1055 DD/ 1535 TD/TT: 04/01/24 1553 Car Repairer Apprentice: [place] [address] Magnetic Resonance Report Signed Patient: Florin Lyle MR#: [id number] : 1970 Acct:[id number] Age/Sex: 53 / M ADM Date: 04/01/24 Loc: HO.MRI Attending Dr: Derrick Castro MD Ordering Physician: Derrick Castro MD Date of Service: 04/01/24 Procedure(s): MR schmitz omen wo/w con Accession Number(s): [id number] cc: Derrick Castro MD EXAMINATION: MR ABDOMEN [...] 05/07/24 1055 DD/ 1535 TD/TT: 04/01/24 1553 Car Repairer Apprentice: Complete Blood Count Auto Di ff Reviewed date:01/01/2024 01:56:59 PM Interpretation: Performing Lab:[facility], [address] [place] [phone] Notes/Report: White Blood Count 9.3 4.8-10.8 X10*3/uL [...] Panel Reviewed date:01/01/2024 01:56:59 PM Interpretation: Performing Lab:[facility], [address] [place] [phone] Notes/Report: Sodium 139 135-145 mmol/L Potassium 4.5 3.3-5.1 mmol/L Chloride 109 96-108 mmol/L Carbon Dioxide 24 22-29 mmol/L Anion Gap 11 12-20 Blood Urea Nitrogen 20 9-16 mg/dL Creatinine 0.88 0.5-1.4 mg/dL Estimated Glomerular Filt Rate > 60 NOTE: For -Mongolian individuals, multiply the result by 1.210. Chronic [...] date:01/01/2024 01:56:59 PM Interpretation: Performing Lab: Notes/Report: [facility] [address] [place] [address] [place] [address] Ultrasound Report Signed Patient: Florin Lyle MR#: [id number] : 1970 Acct:[id number] Age/Sex: 53 / M ADM Date: 12/17/23 [facility] Dr: Derrick Castro MD Ordering Physician: Derrick Castro MD Date of Service: 12/17/23 Procedure(s): US abdomen complete Accession Number(s): [id number] cc: Derrick Castro MD EXAMINATION: US ABDOMEN [...] in OV> 12/17/23 1109 DD/ 0935 TD/TT: Car Repairer Apprentice: [facility] Adult [facility] [place] [address] Ultrasound Report Signed Patient: Florin Lyle MR#: [id number] : 1970 Acct:[id number] Age/Sex: 53 / M ADM Date: 12/17/23 Loc: HO.[facility] Attending Dr: Derrick Castro MD Ordering Physician: Derrick Castro MD Date of Service: 12/17/23 Procedure(s): US abd omen complete Accession Number(s): [id number] cc: Derrick Castro MD EXAMINATION: US ABDOMEN [...] in OV> 12/17/23 1109 DD/ 0935 TD/TT: Inletter ist: SS MR abdomen wo/w con Reviewed date:05/24/2024 08:43:17 AM Interpretation: Performing Lab: Notes/Report: [address] [address] Magnetic Resonance Report Signed Patient: Florin Lyle MR#: [id number] : 1970 Acct:[id number] Age/Sex: 53 / M ADM Date: 01/02/24 Loc: HO.MRI Attending Dr: Derrick Castro MD Ordering Physician: Derrick Castro MD Date of Service: 01/02/24 Procedure(s): MR abdomen wo/w con Accession Number(s): [id number] cc: Derrick Castro MD EXAMINATION: MR ABDOMEN [...] in OV> 01/02/24 1540 DD/ 1319 TD/TT: Car Repairer Apprentice: [address] [address] Magnetic Resonance Report Signed Patient: Florin Lyle MR#: [id number] : 1970 Acct:[id number] Age/Sex: 53 / M ADM Date: 01/02/24 Loc: HO.MRI Attending Dr: Derrick Castro MD Ordering Physician: Derrick Castro MD Date of Service: 01/02/24 Procedure(s): MR abd omen wo/w con Accession Number(s): [id number] cc: Derrick Castro MD EXAMINATION: MR ABDOMEN [...] in OV> 01/02/24 1540 DD/ 1319 TD/TT: Inletter ist: PD Complete Blood Count Auto Di ff Reviewed date:05/24/2024 08:43:17 AM Interpretation: Performing Lab:[facility], [address] [place] [phone] Notes/Report: White Blood Count 10.2 4.8-10.8 X10*3/uL [...] Panel Reviewed date:05/24/2024 08:43:17 AM Interpretation: Performing Lab:[address] [address] Notes/Report: Sodium 143 135-145 mmol/L Potassium 4.9 3.3-5.1 mmol/L Chloride 109 96-108 mmol/L Carbon Dioxide 26 22-29 mmol/L Anion Gap 13 12-20 Blood Urea Nitrogen 17 9-16 mg/dL Creatinine 1.23 0.5-1.4 mg/dL Estimated Glomerular Filt Rate > 60 NOTE: For -Mongolian individuals, multiply the result by 1.210. Chronic [...] (Not yet reviewed by provider) Interpretation: Performing Lab:[address] [address] Notes/Report: White Blood Count 11.0 4.8-10.8 X10*3/uL [...] (Not yet reviewed by provider) Interpretation: Performing Lab:[address] [address] Notes/Report: Erythrocyte Sedimentation Rate 10 0-15 MM/HR Patients with polycythemia and many hemoglobin abnormalities may have depressed sed rates whereas patients with anemia may have elevated sed rates. Comprehensive Met. Panel (No t yet reviewed by provider) Interpretation: Performing Lab:[address] [address] Notes/Report: Sodium 143 135-145 mmol/L Potassium 4.4 [...] 3.5-5.0 g/dL Alkaline Phosphatase 67 39-117 U/L CT abdomen w con (Not yet re viewed by provider) Interpretation: Performing Lab: Notes/Report: [place] [address] CT Scan Report Signed Patient: Florin Lyle MR#: [id number] : 1970 Acct:[id number] Age/Sex: 54 / M ADM Date: 09/08/24 Loc: HO.CT Attending Dr: Derrick Castro MD Ordering Physician: Derrick Castro MD Date of Service: 09/08/24 Procedure(s): CT abdomen w IV con Accession Number(s): [id number] cc: Derrick Castro MD Report Number: [id number]: Total DLP = 453.00 mGy-cm EXAMINATION: CT ABDOMEN WITH IV CONTRAST HISTORY: ABDOMEN PAIN COMPARISON: Correlation is made with an MRI of the abdomen without and with contrast dated 04/01/2024. TECHNIQUE: CT scan of the abdomen was performed following administration of 85 mL Omnipaque 350 using standard departmental protocol. Coronal and sagittal reformatted images were generated and reviewed. Oral contrast material was not administered at the request of the referring physician. This CT exam was performed with one or more of the following dose reduction techniques: automated exposure control, adjustment of the mA and/or kV according to patient size, use of iterative reconstruction technique. DLP: 453 mGy-cm FINDINGS: LOWER CHEST: The visualized lung bases are clear. There is no pleural effusion. CARDIOVASCULATURE: The heart is normal in size. There is no pericardial effusion. LIVER: The liver is normal in size and contour. There is a 1.2 cm cyst in the right lobe. The hepatic and portal veins are patent. GALLBLADDER / BILE DUCTS: The gallbladder is unremarkable. There is no intra or extrahepatic biliary ductal dilatation. SPLEEN: The spleen is normal in size. No focal splenic lesion is identified. PANCREAS: The pancreas is unremarkable in appearance. ADRENAL GLANDS: Within normal limits. 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 No residual mass is identified. No renal calculi are identified. There is no hydronephrosis. No renal masses are identified. LYMPH NODES: No abdominal or pelvic lymphadenopathy. VASCULATURE: The abdominal aorta demonstrates atherosclerotic calcification, but is normal in caliber. MESENTERY/PERITONEUM: No free fluid. No masses. There is no free intraperitoneal gas. STOMACH: The stomach is unremarkable. SMALL BOWEL: The visualized small bowel is normal in caliber. COLON: There is extensive colonic diverticulosis. No evidence of diverticulitis involving the visualized portion of the colon. APPENDIX: Normal. BONES / SOFT TISSUES: There is degenerative disc disease of the spine. 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 No residual mass. Electronically signed by: Derrick Sanchez MD 09/08/2024 12:31 PM EDT Dictated By: Derrick Sanchez MD Signed By: <Electronically signed by Derrick Sanchez MD in OV> 09/08/24 1231 DD/ 1146 TD/TT: 09/08/24 1156 Car Repairer Apprentice: [address] [address] [address] Scan Report Signed Patient: Florin Lyle MR#: [id number] : 1970 Acct:[id number] Age/Sex: 54 / M ADM Date: 09/08/24 Loc: HO.CT Attending Dr: Derrick Castro MD Ordering Physician: Derrick Castro MD Date of Service: 09/08/24 Procedure(s): CT abd omen w IV con Accession Number(s): [id number] cc: Derrick Castro MD Report Number: [id number]: Total DLP = 453.00 mGy-cm EXAMINATION: CT ABDO MEN WITH IV CONTRAST HISTORY: ABDOMEN PAIN COMPARISON: Correlat ion is made with an MRI of the abdomen without and with contrast dated 04/01/2024. TECHNIQUE: CT scan o f the abdomen was performed following administration of 85 mL Omnipaque 350 using standard departmental protocol. Coronal an d sagittal reformatted images were generated and reviewed. Oral contr ast material was not administered at the request of the referring physician. This CT exam was performed with one or more of the following dose reduction techniques : automated exposure control, adjustment of the mA and/or kV according to patient size, use of iterative reconstruction technique. DLP: 453 mGy-cm FINDINGS: LOWER CHEST: The visualized lung bases are clear. There is no pleural effusion. CARDIOVASCULATURE: T he heart is normal in size. There is no pericardial effusion. LIVER: The liver is normal in size and contour. There is a 1.2 cm cyst in the right lo be. The hepatic and portal veins are patent. GALLBLADDER / BILE DUCTS: The gallbladder is unremarkable. There is no intra or extrahepati c biliary ductal dilatation. SPLEEN: The spleen i s normal in size. No focal splenic lesion is identified. PANCREAS: The pancre as is unremarkable in appearance. ADRENAL GLANDS: With in normal limits. KIDNEYS/RETROPERITON EUM: There is minimal scarring at the upper pole of the right kidney at the site of the patient's previously noted neoplasm. No residua l mass is identified. No renal calculi are identified. There is no hydronephrosis. No renal masses are identified. LYMPH NODES: No abdominal or pelvic lymphadenopathy. VASCULATURE: The abdominal aorta demonstrates atherosclerotic calcification, but i s normal in caliber. MESENTERY/PERITONEUM : No free fluid. No masses. There is no free intraperitoneal gas. STOMACH: The stomach is unremarkable. SMALL BOWEL: The visualized small bowel is normal in caliber. COLON: There is extensive colonic diverticulosis. No evidence of diverticulitis invol ving the visualized portion of the colon. APPENDIX: Normal. BONES / SOFT TISSUES : There is degenerative disc disease of the spine. ____ ___ C T/CT abdomen w IV con IMPRESSION: Minimal scarring at the upper pole the right kidney at the site of the patient's previously noted neoplasm. No residual mass. Electronically eva d by: Derrick Sanchez MD 09/08/2024 12:31 PM EDT RP Dictated By: Derrick Sanchez MD Signed By: <Electronically signed by Derrick Sanchez MD in OV> 09/08/24 1231 DD/ 1146 TD/TT: 09/08/24 1156 Car Repairer Apprentice: Reason For Referral Reason Urgent Appointment R [...] Conn Referred Provider Specialty Urology General Notes D, Jackie 05/07/2024 09:37:12 AM > Referral faxed with last 3 progress notes, MRI done on 12/2023 and US., D, Jackie 05/09/2024 10:48:27 AM > patient was scheduled for 05/13/2024 @ 10:[address] Tian at the [place] location [address] [place] [address] 120. [phone]. Patient was called and left a message [...] Omeprazole 20 MG TAKE 1 CAPSULE BY [facility] EVERY DAY Active Social History Tobacco Use: [...] Problem Status W/U Status Risk Notes Problem 686161296 Obesity (E66.9) Active confirmed His body mass index is 31. He has lost 7 pounds. The other surgery. We discussed ways through which he could continue weight loss and maintain proper nutrition. Problem Spinal stenosis (36827710) Spinal stenosis (M48.00) Active confirmed He has a histor y of spinal stenosis and to previous lumbar spine surgery with cold procedures. An MRI is pending. Problem Abdominal pain (55324768) Abdominal pain (R10.9) Active confirmed His surgery [...] any negative consequence from the surgery. Problem 1342120 Primary insomnia (F51.01) Active confirmed He states that the abdominal pain makes it difficult to sleep. I have given him a limited prescription for trazodone. Problem 802164487 Low back pain (M54.5) Active confirmed He continues to have mild back pain with most activities. It has been improved since his procedure. No change in his therapy was necessary today. Problem 48690803 Epigastric pain (R10.13) Active confirmed Problem 596125673 Erectile dysfunction (N52.9) Active confirmed This problem voss s resolved with appropriate medication. Problem 12166952 Tobacco dependen ce (F17.200) Active confirmed I strongly recommend smoking cessation. I discussed with him several strategies for accomplishing this. I have referred him to the smoking cessation classes at [facility]. I have made him aware of the health consequences of cigarette smoking. Problem 698950707 Gastroesophageal reflux disease without esophagitis (K21.9) Active confirmed His chronic esophageal symptoms are controlled with medication. It was noted that he had guaiac positive stool today. This will be pursued. Problem 80534131 Radiculopathy (M54.10) Active confirmed He did not have muscle weakness. I gave him corticosteroids and analgesics. I recommended he lie in bed in a comfortable position most of the day. Problem 455039287 Non-cardiac ches t pain (R07.89) Active confirmed This issue has resolved. He denies any radiation experiences of chest pain. Problem Kidney mass (502542838) Kidney mass (N28.89) Active confirmed There was a mas s in the right kidney with cystic. A neoplasm cannot be ruled out. This will be further evaluated is by the MRI. 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 The surgery was uneventful. He continues to have pain however in the abdomen. Problem 84053809 Hepatic cyst (K76.89) Active confirmed A complex [...] Date Provider Diagnosis Derrick Castro III, MD [address] [place] [address] [place] [address] 12/03/2023 Derrick Castro Upper abdominal pain , unspecified R10.10 ; Low back pain M54.5 ; Tobacco dependence F17.200 ; Obesity E66.9 ; Spinal stenosis M48.00 and Gastroesophageal reflux disease without esophagitis K21.9 Derrick Castro III, MD [address] [place] [address] [place] [address] 01/01/2024 Derrick Castro Left upper quadrant abdominal pain R10.12 ; Hepatic cyst K76.89 ; Tobacco dependence F17.200 ; Kidney mass N28.89 ; Low back pain M54.5 ; Obesity E66.9 and Gastroesophageal reflux disease without esophagitis K21.9 Derrick Castro III, MD [address] [place] [address] [place] [address] 05/05/2024 Derrick Castro Neoplasm of right ki dney D49.511 ; Obesity E66.9 ; Tobacco dependence F17.200 ; Low back pain M54.5 ; Gastroesophageal reflux disease without esophagitis K21.9 and Spinal stenosis M48.00 Derrick Castro III, MD [address] [place] [address] [place] [address] 06/02/2024 Derrick Castro Neoplasm of right ki dney D49.511 ; Obesity E66.9 ; Tobacco dependence F17.200 ; Gastroesophageal reflux disease without esophagitis K21.9 ; Spinal stenosis M48.00 and Non-cardiac chest pain R07.89 Derrick Castro III, MD [address] [place] [address] [place] [address] 07/15/2024 Derrick Castro Renal neoplasm D49.5 19 ; Low back pain M54.5 ; Tobacco dependence F17.200 ; Non-cardiac chest pain R07.89 ; Obesity E66.9 ; Gastroesophageal reflux disease without esophagitis K21.9 and Hepatic cyst K76.89 Derrick Castro III, MD [address] [place] [address] [place] [address] 08/26/2024 Derrick Castro Obesity E66.9 ; Abdo yesika pain R10.9 ; Renal neoplasm D49.519 ; Tobacco dependence F17.200 ; Spinal stenosis M48.00 and Primary insomnia F51.01 Derrick Castro III, MD [address] [place] [address] [place] [address] 12/03/2023 Derrick Castro III, MD [address] [place] [address] [place] [address] 01/09/2024 Derrick Castro III, MD [address] [place] [address] [place] [address] 03/28/2024 Derrick Castro Kidney mass N28.89 ; Obesity E66.9 and Epigastric pain R10.13 Derrick Castro III, MD [address] [place] [address] [place] [address] 05/12/2024 Derrick Castro III, MD [address] [place] [address] [place] [address] 09/04/2024 Derrick Castro Assessments Encounter Date Diagnosis (ICD Code) Assessment Notes T reatment Notes Treatment Clinical Notes 12/03/2023 Low back pain (ICD-1 0 - [...] medically cleared for surgery with general anesthesia. 08/26/2024 Obesity (ICD-10 - E66.9) His body [...] is any negative consequence from the surgery. 03/28/2024 Kidney mass (ICD-10 - N28.89) 12/03/2023 Tobacco dependence (ICD-10 - F17.200) I strongly recommend smoking cessation. I discussed with him several strategies for accomplishing this. I have referred him to the smoking cessation classes at [facility]. I have made him aware of the health consequences of cigarette smoking. 01/01/2024 Tobacco dependence (ICD-10 - F17.200) I strongly recommend smoking cessation. I discussed with him several strategies for accomplishing this. I have referred him to the smoking cessation classes at [facility]. I have made him aware of the health consequences of cigarette smoking. 05/05/2024 Tobacco dependence (ICD-10 - F17.200) I strongly recommend smoking cessation. I discussed with him several strategies for accomplishing this. I have referred him to the smoking cessation classes at [facility]. I have made him aware of the health consequences of cigarette smoking. 06/02/2024 Tobacco dependence (ICD-10 - F17.200) I strongly recommend smoking cessation. I discussed with him several strategies for accomplishing this. I have referred him to the smoking cessation classes at [facility]. I have made him aware of the health consequences of cigarette smoking. 07/15/2024 Tobacco dependence (ICD-10 - F17.200) I strongly recommend smoking cessation. I discussed with him several strategies for accomplishing this. I have referred him to the smoking cessation classes at [facility]. I have made him aware of the health consequences of cigarette smoking. 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 The surgery was uneventful. He continues to have pain however in the abdomen. 03/28/2024 Obesity (ICD-10 - E66.9) 12/03/2023 Obesity (ICD-10 - E66.9) He has [...] denies any radiation experiences of chest pain. 08/26/2024 Tobacco dependence (ICD-10 - F17.200) I strongly recommend smoking cessation. I discussed with him several strategies for accomplishing this. I have referred him to the smoking cessation classes at [facility]. I have made him aware of the health consequences of cigarette smoking. 03/28/2024 Epigastric pain (ICD-10 - R10.13) 12/03/2023 [...] and sodium combined with regular physical activity. 08/26/2024 Spinal stenosis (ICD-10 - M48.00) He has a history of spinal stenosis and to previous lumbar spine surgery with cold procedures. An MRI is pending. 12/03/2023 Gastroesophageal reflux disease without esophagitis (ICD-10 [...] positive stool today. This will be pursued. 08/26/2024 Primary insomnia (ICD-10 - F51.01) He states that the abdominal pain makes it difficult to sleep. I have given him a limited prescription for trazodone. 01/01/2024 Gastroesophageal reflux disease without esophagitis (ICD-10 [...] Order Date PROFILE, FASTING (COMPREHENSIVE METABOLI C) 06/22/2017 PROFILE, FASTING (COMPREHENSIVE METABOLI C) 11/27/2022 PROFILE, FASTING (COMPREHENSIVE METABOLI C) 11/23/2021 PROFILE, FASTING (COMPREHENSIVE METABOLI C) 07/31/2018 PROFILE, RANDOM (COMPREHENSIVE METABOLIC ) 08/26/2024 LIPID PANEL 11/27/2022 LIPID PANEL 07/31/2018 LIPID PANEL 06/22/2017 FERRITIN 11/27/2022 PSA, TOTAL 11/23/2021 PSA, TOTAL 07/31/2018 CBC w DIFF 08/26/2024 CBC w DIFF 11/23/2021 CBC w DIFF 11/27/2022 CBC w DIFF 07/31/2018 CBC w DIFF 06/22/2017 SED RATE (ESR) 08/26/2024 LYME DISEASE IgG/IgM WB 11/23/2021 CT ABD WITH CONTRAST 08/26/2024 MRI ABD W&WO CONTRAST 01/01/2024 MRI CERVICAL SPINE W&WO CONTRAST 018 MRI LUMBAR SPINE W&WO CONTRAST 0 US ABD 12/03/2023 Complete Blood Count Auto Diff 5 Erythrocyte Sedimentation Rate 5 Comprehensive Met. Panel 08/26/2024 Lipid Panel 11/23/2021 CT abdomen w con 09/08/2024 Next Appt Details Provider Name:Derrick Castro, 12/03/2024 02:00:00 PM, [address] [place] [address] CJ [place], [facility], [address], Insurance Providers Payer Name Payer Address Payer Phone Subscriber Number Group Number Insured Name Patient Relationship to Insured Coverage Start Date Coverage End Date [facility] [address] [place], [place] [id number] [phone] [id number] Florin Lyle Self - patient is the insured Medical (General) History Medical History History ICD Code chronic lumbar back pain atypical right-sided chest pain tobacco dependence obesity 2.3 cm exophytic right renal neoplasm Back surgery - Patient has a history of back surgery. Surgical History Surgery Date(Month/Year) Back Surgery, 17 yrs ago Operative Note: L2-L3 decomp ression, reoperative L5-S1 decompression, reoperative left L3-L4 microdiskectomy, 2016-07-11 L-3 and L-4 04/2020 Colonoscopy, [facility], Dr. Derrick Dye 2020 No history Back surgery Surgery on july 15, 202406/2024 Hospitalization History Reason Date(Month/Year) No history Hospitalized for 24 hours after surgery on july 15, 202406/2024
== END 2024-09-08 11:19 | disposition home or self-care (01) ==
LOC: HO.CT 11:18
PROVIDERS: PCP Internal Medicine Medical Oncology; Visit Provider Internal Medicine Medical Oncology
DX: R10.9 Unspecified abdominal pain (principal); D49.519 Neoplasm of unspecified behavior of unspecified kidney
CPT/HCPCS: 74160; Q9967

== ENCOUNTER → 2024-09-08 11:46 | Outpatient (BNV) | payer BC, SELFPAY | PROVIDERS: PCP Internal Medicine Medical Oncology; Visit Provider Radiology Diagnostic Radiology | DX: R10.9 Unspecified abdominal pain (principal) | CPT/HCPCS: 74160 ==